=== PATIENT | male | born 1940 ===

== ENCOUNTER 2017-11-26 13:48 | Emergency (ER) | payer MEDICARE ==
[2017-11-26 13:48] VITALS: BMI 27.6
[2017-11-26 14:05] VITALS: BP 144/82; PULSE 98; RESP 16; TEMP 98; O2SAT 98
--- NOTE | 2017-11-26 14:31 | C.PDOC ---
- HPI Time Seen by Provider: 11/26/17 14:16 Chief Complaint (Nursing): Trauma Past Medical History Vital Signs: Last Vital Signs Temp 98 F 11/26/17 14:03 Pulse 98 H 11/26/17 14:03 Resp 16 11/26/17 14:03 BP 144/82 11/26/17 14:03 Pulse Ox 98 11/26/17 14:03 - Medical History PMH: Arthritis, Asthma, CAD, COPD, CVA, Diabetes, Gastritis, HTN, Hypercholesterolemia Denies: Chronic Kidney Disease Surgical History: Back Surgery (herniated disc), Cholecystectomy (2010) - [facility] Procedures DESTRUCTION OF ASCENDING COLON, ENDO (12/08/15) EXCISION OF STOMACH, ENDO, DIAGN (12/08/15) LAPAROSCOPIC CHOLECYSTECTOMY (07/26/14) Family History: States: Diabetes - Social History Hx Tobacco Use: Yes Hx Alcohol Use: No Hx Substance Use: No - Immunization History Hx Tetanus Toxoid Vaccination: Yes Hx Influenza Vaccination: No (2014) Hx Pneumococcal Vaccination: Yes ED Course And Treatment O2 Sat by Pulse Oximetry: 98 Disposition - Disposition
--- NOTE | 2017-11-26 14:34 | C.PDOC ---
History Of Present Illness 77 year old male with history of chronic "bad balance" presents to the ED c/o right sided chest wall and back pain for the past 5-6 days. Patient reports he accidentally fell 8 days ago sustaining an injury to his right side chest. Patient now noticed rash to the right side of his chest wall and back for the 5- 6 days as well. Patient is c/o burning, pain to the area that worsens with movement, pleutritic type pian. Patient is taken chronic pain medications. Patient denies fever, chills, cough, SOB, weakness, numbness. r chest wall/BACK PAIN X 5-6 DAYS. HO CHRONIC "BAD BALANCE", ACCID FALL 8 DAYS AGO ?INJURY TO R CHEST. NOTICED NEW ONSET RASH R CHEST WALL AND BACK X 5-6 DAYS. CO BURNING, PAIN TO AREA WORSE W MOVEMENT, PLEURITIC. NO FEVER, COUGH SOB. ON CHRONIC PAIN MEDS. EXAM NAD NONTOXIC HEENT ATRAUM SKIN +SHINGLES R CHEST WALL AND R MID BACK. NO CELLULITIS CHEST WALL NO CREPITUS, BRUISING, SWELL LUNGS CTA B/L NO W/R/R REMAINDER NEG Time Seen by Provider: 11/26/17 14:16 Chief Complaint (Nursing): Trauma History Per: Patient History/Exam Limitations: no limitations Onset/Duration Of Symptoms: Days Current Symptoms Are (Timing): Still Present Recent travel outside of the [place] States: No Additional History Per: Patient Past Medical History Reviewed: Historical Data, Nursing Documentation, Vital Signs Vital Signs: Last Vital Signs Temp 98 F 11/26/17 14:03 Pulse 98 H 11/26/17 14:03 Resp 16 11/26/17 14:03 BP 144/82 11/26/17 14:03 Pulse Ox 98 11/26/17 14:36 - Medical History PMH: Arthritis, Asthma, CAD, COPD, CVA, Diabetes, Gastritis, HTN, Hypercholesterolemia Denies: Chronic Kidney Disease Surgical History: Back Surgery (herniated disc), Cholecystectomy (2010) - [facility] Procedures DESTRUCTION OF ASCENDING COLON, ENDO (12/08/15) EXCISION OF STOMACH, ENDO, DIAGN (12/08/15) LAPAROSCOPIC CHOLECYSTECTOMY (07/26/14) Family History: States: Diabetes - Social History Hx Tobacco Use: Yes Hx Alcohol Use: No Hx Substance Use: No - Immunization History Hx Tetanus Toxoid Vaccination: Yes Hx Influenza Vaccination: No (2015) Hx Pneumococcal Vaccination: Yes Review Of Systems Constitutional: Negative for: Fever, Chills Cardiovascular: Positive for: Chest Pain Respiratory: Negative for: Shortness of Breath Gastrointestinal: Negative for: Nausea, Vomiting, Abdominal Pain Skin: Positive for: Rash Neurological: Negative for: Weakness, Numbness Physical Exam - Physical Exam Appears: Non-toxic, No Acute Distress Skin: Normal Color, Warm, Dry, Other (shingles right sided chest wall and right mid back. No cellulitis) Head: Atraumatic, Normacephalic Eye(s): bilateral: Normal Inspection Ear(s): Bilateral: Normal Nose: No Discharge Oral Mucosa: Moist Throat: Normal, No Erythema, No Exudate Neck: Normal ROM, Supple Chest: Symmetrical, No Other (crepitus, bruising, swelling) Cardiovascular: Rhythm Regular, No Murmur Respiratory: Normal Breath Sounds, No Rales, No Rhonchi, No Wheezing Gastrointestinal/Abdominal: Soft, No Tenderness, No Guarding, No Rebound Extremity: Normal ROM, No Tenderness, No Swelling Neurological/Psych: Oriented x3, Normal Motor, Normal Sensation Gait: Steady ED Course And Treatment O2 Sat by Pulse Oximetry: 98 (On RA) Pulse Ox Interpretation: Normal Medical Decision Making Medical Decision Making: Impression: rash, chest and back pain Plan: * Motrin 600 mg PO * Lidodern 1 ea TD * Prednisone 60 mg PO Disposition Counseled Patient/Family Regarding: Diagnosis, Need For Followup, Rx Given - Disposition Referrals: YOUR,PMD [Other] Disposition: HOME/ ROUTINE Disposition Time: 14:34 Condition: IMPROVED Prescriptions: Ibuprofen [Motrin] 600 mg PO Q6 #30 tab Lidocaine 5% [Lidoderm] 1 ea TD PRN PRN #10 patch PRN Reason: Pain, Moderate (4-7) predniSONE [Prednisone] 60 mg PO DAILY #12 tab Instructions: Shingles (DC) Forms: [facility] (Greenlandic) - Clinical Impression Clinical Impression: Shingles - Scribe Statement The provider has reviewed the documentation as recorded by the Scribe Gus Aponte All medical record entries made by the Scribe were at my direction and personally dictated by me. I have reviewed the chart and agree that the record accurately reflects my personal performance of the history, physical exam, medical decision making, and the department course for this patient. I have also personally directed, reviewed, and agree with the discharge instructions and disposition.
[2017-11-26] MEDS ORDERED: Lidocaine 5% Patch TD STA (14:35)
== END 2017-11-26 15:01 | disposition home or self-care (01) ==
LOC: C.ER 13:48
DX: B02.9 Zoster without complications (principal)

== ENCOUNTER 2018-01-26 19:53 | Emergency (ER) | payer MEDICARE ==
[2018-01-26 19:53] VITALS: BMI 27.6
[2018-01-26 20:05] VITALS: BP 113/70; RESP 20; O2SAT 98
--- NOTE | 2018-01-26 20:48 | C.PDOC ---
History Of Present Illness Patient presents to the ER after he tripped and fell a week ago and skinned his right anterior tibial lang. Denies fever, chills, nausea, or vomiting. Time Seen by Provider: 01/26/18 20:45 Chief Complaint (Nursing): Lower Extremity Problem/Injury History Per: Patient History/Exam Limitations: no limitations Onset/Duration Of Symptoms: Days Current Symptoms Are (Timing): Still Present Severity: Mild Pain Scale Rating Of: 2 Recent travel outside of the [place] States: No Past Medical History Reviewed: Historical Data, Nursing Documentation, Vital Signs Vital Signs: Last Vital Signs Temp 98 F 01/26/18 21:32 Pulse 82 01/26/18 21:32 Resp 20 01/26/18 21:32 BP 113/70 01/26/18 19:58 Pulse Ox 98 01/26/18 21:32 - Medical History PMH: Arthritis, Asthma, CAD, COPD, CVA, Diabetes, Gastritis, HTN, Hypercholesterolemia Surgical History: Back Surgery (herniated disc), Cholecystectomy (2010) - [facility] Procedures DESTRUCTION OF ASCENDING COLON, ENDO (12/08/15) EXCISION OF STOMACH, ENDO, DIAGN (12/08/15) LAPAROSCOPIC CHOLECYSTECTOMY (07/26/14) Family History: States: Diabetes - Social History Hx Tobacco Use: Yes Hx Alcohol Use: No Hx Substance Use: No - Immunization History Hx Tetanus Toxoid Vaccination: Yes Hx Influenza Vaccination: Yes (2014) Hx Pneumococcal Vaccination: Yes Review Of Systems Constitutional: Negative for: Fever, Chills Gastrointestinal: Negative for: Nausea, Vomiting Skin: Positive for: Other (Wound) Neurological: Negative for: Weakness, Numbness Physical Exam - Physical Exam Appears: Non-toxic Skin: Warm, Dry Head: Normacephalic Oral Mucosa: Moist Chest: Symmetrical, No Tenderness Cardiovascular: Rhythm Regular Respiratory: No Rales, No Rhonchi, No Wheezing Gastrointestinal/Abdominal: Soft, No Tenderness Extremity: Other (4x6cm area of erythema with two 1.5cm areas of open wounds with small amount of granulation tissue to right anterior tibial lang) Pulses: Left Dorsalis Pedis: Normal, Right Dorsalis Pedis: Normal Neurological/Psych: Oriented x3, Normal Speech, Normal Motor, Normal Sensation Gait: Other (Ambulating at baseline with cane) ED Course And Treatment O2 Sat by Pulse Oximetry: 98 (Room air) Pulse Ox Interpretation: Normal Disposition Counseled Patient/Family Regarding: Studies Performed, Diagnosis, Need For Followup, Rx Given - Disposition Referrals: Abundio Shelley MD [Staff Provider] - Disposition: HOME/ ROUTINE Disposition Time: 20:46 Condition: FAIR Additional Instructions: Please return if symptoms recur Instructions: Cellulitis (Skin Infection), Adult (DC) Forms: [facility] [facility] (Montenegrin) - Clinical Impression Clinical Impression: Cellulitis, Fall, Abrasion - Scribe Statement The provider has reviewed the documentation as recorded by the Scribshadi Velez All medical record entries made by the Sammyibshadi were at my direction and personally dictated by me. I have reviewed the chart and agree that the record accurately reflects my personal performance of the history, physical exam, medical decision making, and the department course for this patient. I have also personally directed, reviewed, and agree with the discharge instructions and disposition.
[2018-01-26 21:33] VITALS: PULSE 82; TEMP 98
== END 2018-01-26 21:31 | disposition home or self-care (01) ==
LOC: C.ER 19:53
DX: S80.811A Abrasion, right lower leg, initial encounter (principal); L03.115 Cellulitis of right lower limb; W01.0XXA Fall on same level from slipping, tripping and stumbling without subsequent striking against object, initial encounter

== ENCOUNTER 2018-03-16 15:21 | Inpatient (IN) | payer MEDICARE ==
--- NOTE | 2018-03-16 15:42 | C.PDOC ---
History Of Present Illness 78 year old male patient with hx of COPD and PSHx of back surgery presents to the ER with a referral from Dr. Shelley. Patient states he was doing a routine visit with Dr. Shelley to renew his prescription, but was waiting for a very long time. Patient states that when he stood up, he felt weak and fell. Afterwards he had SOB and his blood pressure escalated. Patient states he has chronic back pain due to back surgery and swollen legs despite being on diuretic. Other associated symptoms includes: frequent SOB on exertion, weak and fatigue. Patient denies chest pain and abdominal pain. Time Seen by Provider: 03/16/18 15:30 Chief Complaint (Nursing): Weakness/Neurological Deficit History Per: Patient History/Exam Limitations: no limitations Onset/Duration Of Symptoms: Hrs Current Symptoms Are (Timing): Still Present Past Medical History Reviewed: Historical Data, Nursing Documentation, Vital Signs Vital Signs: Last Vital Signs Temp 98.4 F 03/16/18 15:34 Pulse 80 03/16/18 15:34 Resp 20 03/16/18 16:00 BP 130/69 03/16/18 15:34 Pulse Ox 100 03/16/18 16:13 - Medical History PMH: Arthritis, Asthma, CAD, COPD, CVA, Diabetes, Gastritis, HTN, Hypercholesterolemia Surgical History: Back Surgery (herniated disc), Cholecystectomy (2010) - [facility] Procedures DESTRUCTION OF ASCENDING COLON, ENDO (12/08/15) EXCISION OF STOMACH, ENDO, DIAGN (12/08/15) LAPAROSCOPIC CHOLECYSTECTOMY (07/26/14) Family History: States: Diabetes - Social History Hx Tobacco Use: Yes Hx Alcohol Use: No Hx Substance Use: No - Immunization History Hx Tetanus Toxoid Vaccination: Yes Hx Influenza Vaccination: Yes (2014) Hx Pneumococcal Vaccination: Yes Review Of Systems Constitutional: Positive for: Weakness, Other (fatigue) Cardiovascular: Negative for: Chest Pain Respiratory: Positive for: SOB with Excertion Gastrointestinal: Negative for: Abdominal Pain Musculoskeletal: Positive for: Back Pain (chronic), Other (swollen legs) Physical Exam - Physical Exam Appears: Well, Non-toxic, No Acute Distress Skin: Normal Color, Warm, Dry Head: Atraumatic, Normacephalic Eye(s): bilateral: Normal Inspection Ear(s): Bilateral: Normal Nose: Normal Oral Mucosa: Moist Throat: Normal Neck: Normal ROM, Supple Chest: Symmetrical, No Deformity Cardiovascular: Rhythm Regular, Other (distant heart beat) Respiratory: Rales (B/L), No Rhonchi, No Wheezing Gastrointestinal/Abdominal: Soft, No Tenderness Back: No CVA Tenderness Extremity: Normal ROM (x4), Pedal Edema (2-3+), No Calf Tenderness, No Deformity Pulses: Left Dorsalis Pedis: Normal, Right Dorsalis Pedis: Normal Neurological/Psych: Oriented x3, Normal Speech, Normal Motor, Normal Sensation, Normal Reflexes Gait: Steady ED Course And Treatment - Laboratory Results Result Diagrams: 03/16/18 16:35 03/16/18 16:35 Lab Interpretation: Abnormal (BUN 22, glucose 70) ECG: Interpreted By Me ECG Rhythm: Sinus Rhythm (with left axis and LVH), Nonspecific Changes (T waves) ECG Interpretation: No Acute Changes O2 Sat by Pulse Oximetry: 100 (RA) Pulse Ox Interpretation: Normal - Radiology CXR: Viewed By Me, Read By Radiologist CXR Interpretation: Yes: No Acute Disease Reevaluation Time: 17:43 Reassessment Condition: Unchanged - Physician Consult Information Time Consulting Physician Contacted: 17:43 Physician Contacted: Abundio Shelley Outcome Of Conversation: Patient to be admitted for exacerbation of COPD, failure to thrive and frequent falls. Medical Decision Making Medical Decision Making: Impression:SOB on exertion, weak and fatigue, swollen legs and chronic back pain Reassess: On re-eval, pt is afebrile, hemodynamically stable. Non-toxic. PulseOx 100% on RA. ENT: no acute findings. Uvula midline. Neck: Supple, (-) JVD. Abd: Soft, non-tender. Neurologically intact. Patient is advised to f/u with PCP in 1-2 days and to come back if condition worsen. Disposition - Disposition Disposition: HOSPITALIZED Disposition Time: 17:40 Condition: STABLE - POA Present On Arrival: None - Clinical Impression Clinical Impression: COPD exacerbation, Failure to thrive in adult, Multiple falls - Scribe Statement The provider has reviewed the documentation as recorded by the Luis Alfredo Sutton Do Provider Attestation: All medical record entries made by the Scribe were at my direction and personally dictated by me. I have reviewed the chart and agree that the record accurately reflects my personal performance of the history, physical exam, medical decision making, and the department course for this patient. I have also personally directed, reviewed, and agree with the discharge instructions and disposition.
[2018-03-16 16:15] VITALS: BMI 23.6
--- NOTE | 2018-03-16 16:37 | RAD ---
Date of service: 03/16/2018 PROCEDURE: CHEST RADIOGRAPH, 1 VIEW HISTORY: SOB COMPARISON: 04/28/2016. FINDINGS: LUNGS: The lungs are well inflated and clear. PLEURA: No pneumothorax or pleural fluid seen. CARDIOVASCULAR: Normal. OSSEOUS STRUCTURES: No significant abnormalities. VISUALIZED UPPER ABDOMEN: Normal. OTHER FINDINGS: None. IMPRESSION: No active pulmonary disease.
[2018-03-16 16:43] LABS: BASO # 0.1 K/uL (0.0-0.2); EOS # 1.2 K/uL (0.0-0.7); EOS % 14.6 % (0.0-4.0); HEMOGLOBIN 12.2 g/dL (12.0-18.0); LYMPH # 1.1 K/uL (1.0-4.3); LYMPH % 12.6 % (20.0-40.0); MEAN CORPUSCULAR HEMOGLOBIN 30.5 pg (27.0-31.0); MEAN CORPUSCULAR HGB CONC 32.8 g/dL (33.0-37.0); MEAN PLATELET VOLUME 8.5 fL (7.2-11.7); MONO # 0.6 K/uL (0.0-0.8); MONO % 6.9 % (0.0-10.0); NEUT # 5.4 K/uL (1.8-7.0); NEUT % 64.9 % (50.0-75.0); NRBC % 0.1 % (0.0-2.0); RBC 4.01 Mil/uL (4.40-5.90); RED CELL DISTRIBUTION WIDTH 18.3 % (11.5-14.5); WHITE BLOOD COUNT 8.4 K/uL (4.8-10.8)
[2018-03-16 17:17] LABS: BLOOD UREA NITROGEN 22 mg/dL (9-20); GFR AFRICAN-AMERICAN > 60; GFR NON-AFRICAN AMERICAN > 60
[2018-03-16 17:18] LABS: ALB/GLOB RATIO 1.4 (1.0-2.1); ALBUMIN 3.8 g/dL (3.5-5.0); ALT/SGPT 67 U/L (21-72); AST/SGOT 30 U/L (17-59); B-TYPE NATRIURETIC PEPTIDE 343 pg/mL (0-900); CALCIUM 9.8 mg/dl (8.6-10.4)
[2018-03-16] MEDS ORDERED: (Novolog) Insulin Aspart, Recombinant 100 u/ml 10 ml vial SC SCH (21:45)
[2018-03-16] MEDS ORDERED: Oxycodone/Acetaminophen 5/325 mg Tab ONE (21:53)
[2018-03-16] MEDS: Oxycodone/Acetaminophen 5/325 mg Tab PO PRN (21:54)
[2018-03-16] MEDS: Albuterol-Ipratrop 3 mg / 0.5 (3 ml) UD INH SCH (23:40)
[2018-03-17] MEDS: Albuterol-Ipratrop 3 mg / 0.5 (3 ml) UD INH SCH ×5 (03:13→19:30)
--- NOTE | 2018-03-17 07:53 | CP.PCM.PN ---
Subjective - Date & Time of Evaluation Date of Evaluation: 03/17/18 Time of Evaluation: 07:53 - Subjective Subjective: PGY-[address] Shelley Service Patient seen and examined at bedside. Per nursing no acute events occurred overnight. Patient denies any chest pain, fevers, chills, nausea, vomiting, headache, dizziness, abdominal pain, changes in vision, or any other complaints. 78 year old female with a past medical history of hypertension, hyperlipdemia, bph, cholecystitiss(s/p cholecystectomy),COPD and PSHx of back surgery presents to the ER with a referral from Dr. Shelley. Patient states he was doing a routine visit with Dr. Shelley to renew his prescription, but was waiting for a very long time. Patient states that when he stood up, he felt weak and fell. Afterwards he had SOB and his blood pressure escalated. Patient states he has chronic back pain due to back surgery and swollen legs despite being on diuretic. Other associated symptoms includes: frequent SOB on exertion, weak and fatigue. Patient denies chest pain and abdominal pain. Medical history: htn, hld, bph, cholecystitis, copd, Surgical hx: cholecystectomy, back surgery Allergies: Denies PMD:Dr. Shelley Objective - Vital Signs/Intake and Output Vital Signs (last 24 hours): Temp Pulse Resp BP Pulse Ox 97.5 F L 65 20 151/85 H 100 03/17/18 07:39 03/17/18 07:39 03/17/18 07:39 03/17/18 07:39 03/17/18 07:39 - Medications Medications: Current Medications Albuterol/Ipratropium (Duoneb 3 Mg/0.5 Mg (3 Ml) Ud) 3 ml INH RQ4 [facility] Last Admin: 03/17/18 07:28 Dose: 3 ml Allopurinol (Zyloprim) 100 mg PO DAILY [facility] Colchicine (Colocrys) 0.6 mg PO DAILY [facility] Diclofenac Sodium (Voltaren) 50 mg PO BID [facility] Folic Acid (Folic Acid) 1 mg PO DAILY [facility] Furosemide (Lasix) 20 mg PO DAILY [facility] Gabapentin (Neurontin) 300 mg PO BID [facility] Glipizide (Glucotrol) 10 mg PO DAILY [facility] Home Med (Atorvastatin [Lipitor]) 10 mg PO DAILY [facility] Home Med (Cholecalciferol [Vitamin D 1000 Iu]) 1,000 unit PO DAILY [facility] Home Med (Dutasteride [Avodart]) 0.5 mg PO DAILY [facility] Home Med (Metformin [Glucophage]) 1,000 mg PO BID [facility] Home Med (Theophylline [Cb-Dur]) 200 mg PO BID [facility] Insulin Aspart (Novolog) 0 unit SC ONCE [facility] PRN Reason: Protocol Insulin Glargine (Lantus) 25 unit SC DAILY [facility] Methotrexate (Methotrexate) 3 mg PO QWK [facility] Oxycodone/Acetaminophen (Percocet 5/325 Mg Tab) 1 tab PO Q6 PRN PRN Reason: Pain, severe (8-10) Stop: 03/20/18 00:01 Last Admin: 03/16/18 21:54 Dose: 1 tab Tamsulosin HCl (Flomax) 0.4 mg PO DAILY [facility] Tramadol HCl (Ultram) 50 mg PO Q6 PRN PRN Reason: Pain, moderate (4-7) Last Admin: 03/17/18 05:10 Dose: 50 mg - Labs Labs: 03/16/18 16:35 03/16/18 16:35 Assessment and Plan - Assessment and Plan (Free Text) Plan: Near Syncope Last echo 12/2015 :EF 50-55% :Diastolic dysfunction :Trace tricuspid regurgitation :Mild pulmonic valve regurgitation -Orthostatics ordered .Will f/u with results. -Echo ordered. Will f/u with results. HTN -Lasix 20mg PO Daily DM2 -Glipizide 10mg PO Daily -ISS -Glargine 25 unit SC Daily -Metformin 1000mg PO BID Hypercholesterolemia -Rosuvastatin 5mg PO HS BPH -Flomax .4mg PO Daily -Finasteride 5mg PO Daily COPD -Theophylline 300 mg PO Daily -Duonebs 3ml INH RQ4 Gout -Allopurinol 100mg PO Daily -Colchicine .6mg PO Daily Vitamin D deficiency -Ergocalciferol 1 cap PO QWK PPX -Lovenox 40mg SC Daily -GI not indicated at this time. All management per Dr. Shelley
[2018-03-17] MEDS ORDERED: Home Med 1 UNIT (Metformin [Glucophage] 1,000 MG) PO SCH (10:00)
[2018-03-17] MEDS ORDERED: Home Med 1 UNIT (Atorvastatin [Lipitor] 10 MG) PO SCH (10:00)
[2018-03-17] MEDS ORDERED: Home Med 1 UNIT (Cholecalciferol [Vitamin D 1000 Iu] 1,000 UNIT) PO SCH (10:00)
[2018-03-17] MEDS ORDERED: DUTASTERIDE 0.5 MG PO SCH (10:00)
[2018-03-17] MEDS ORDERED: Ergocalciferol 50,000 Intl Units Cap PO SCH (10:00)
[2018-03-17] MEDS ORDERED: Theophylline 200mg ER 24 hrs Cap PO SCH (10:00)
[2018-03-17] MEDS ORDERED: THEOPHYLLINE 200 MG PO SCH (10:00)
[2018-03-17] MEDS: Diclofenac Sodium Delayed Release 50 mg EC Tab PO SCH ×2 (10:59→17:28)
[2018-03-17] MEDS: Enoxaparin 40 mg Syringe SC SCH (11:00)
[2018-03-17] MEDS: (Lantus) Insulin Glargine, Recombinant SC SCH (11:04)
[2018-03-17] MEDS ORDERED: Magnesium Sulfate 1 gm in D5W 1 GM/100 ML BAG IVPB ONE (12:00)
[2018-03-17] MEDS: Theophylline 300mg ER 24 hrs Cap PO SCH (12:20)
[2018-03-17] MEDS: (Novolog) Insulin Aspart, Recombinant 100 u/ml 10 ml vial SC SCH ×3 (12:35→22:00)
[2018-03-18] MEDS: Albuterol-Ipratrop 3 mg / 0.5 (3 ml) UD INH SCH ×6 (00:34→20:11)
[2018-03-18] MEDS ORDERED: guaiFENesin 100 mg/5 ml Syrup UD PO ONE (02:42)
[2018-03-18] MEDS: Oxycodone/Acetaminophen 5/325 mg Tab PO PRN (02:45)
[2018-03-18 06:41] LABS: BASO # 0.1 K/uL (0.0-0.2); BASO % 0.9 % (0.0-2.0); EOS # 1.5 K/uL (0.0-0.7); EOS % 20.3 % (0.0-4.0); HEMOGLOBIN 12.2 g/dL (12.0-18.0); LYMPH # 1.2 K/uL (1.0-4.3); LYMPH % 15.5 % (20.0-40.0); MEAN CELL VOLUME 93.1 fL (80.0-94.0); MEAN CORPUSCULAR HEMOGLOBIN 30.9 pg (27.0-31.0); MEAN CORPUSCULAR HGB CONC 33.2 g/dL (33.0-37.0); MEAN PLATELET VOLUME 8.7 fL (7.2-11.7); MONO # 0.6 K/uL (0.0-0.8); MONO % 8.4 % (0.0-10.0); NEUT # 4.1 K/uL (1.8-7.0); NEUT % 54.9 % (50.0-75.0); PLATELET COUNT 231 K/uL (130-400); RBC 3.96 Mil/uL (4.40-5.90); RED CELL DISTRIBUTION WIDTH 17.8 % (11.5-14.5); WHITE BLOOD COUNT 7.4 K/uL (4.8-10.8)
--- NOTE | 2018-03-18 06:59 | CP.PCM.PN ---
Subjective - Date & Time of Evaluation Date of Evaluation: 03/18/18 Time of Evaluation: 06:59 - Subjective Subjective: PGY-[address] Shelley Service Patient seen and examined at bedside. Per nursing no acute events occurred overnight. Patient denies any chest pain, fevers, chills, nausea, vomiting, headache, dizziness, abdominal pain, changes in vision, or any other complaints. Objective - Vital Signs/Intake and Output Vital Signs (last 24 hours): Temp Pulse Resp BP Pulse Ox 98.5 F 69 20 132/69 99 03/17/18 23:10 03/17/18 23:10 03/17/18 23:10 03/17/18 23:10 03/17/18 23:10 Intake and Output: 03/17/18 03/18/18 18:59 06:59 Intake Total 600 600 Balance 600 600 - Medications Medications: Current Medications Albuterol/Ipratropium (Duoneb 3 Mg/0.5 Mg (3 Ml) Ud) 3 ml INH RQ4 [facility] Last Admin: 03/18/18 04:47 Dose: Not Given Allopurinol (Zyloprim) 100 mg PO DAILY [facility] Last Admin: 03/17/18 11:02 Dose: 100 mg Colchicine (Colocrys) 0.6 mg PO DAILY [facility] Last Admin: 03/17/18 11:01 Dose: 0.6 mg Diclofenac Sodium (Voltaren) 50 mg PO BID [facility] Last Admin: 03/17/18 17:28 Dose: 50 mg Enoxaparin Sodium (Lovenox) 40 mg SC DAILY [facility] Last Admin: 03/17/18 11:00 Dose: 40 mg Ergocalciferol (Drisdol 50,000 Intl Units Cap) 1 cap PO QWK [facility] Last Admin: 03/17/18 11:02 Dose: 1 cap Finasteride (Proscar) 5 mg PO DAILY [facility] Last Admin: 03/17/18 11:00 Dose: 5 mg Folic Acid (Folic Acid) 1 mg PO DAILY [facility] Last Admin: 03/17/18 11:03 Dose: 1 mg Furosemide (Lasix) 20 mg PO DAILY [facility] Last Admin: 03/17/18 11:03 Dose: 20 mg Gabapentin (Neurontin) 300 mg PO BID [facility] Last Admin: 03/17/18 17:25 Dose: 300 mg Glipizide (Glucotrol) 10 mg PO DAILY [facility] Last Admin: 03/17/18 11:03 Dose: 10 mg Insulin Aspart (Novolog) 0 unit SC ACHS [facility] PRN Reason: Protocol Last Admin: 03/17/18 22:00 Dose: Not Given Insulin Glargine (Lantus) 25 unit SC DAILY [facility] Last Admin: 03/17/18 11:04 Dose: 25 units Metformin HCl (Glucophage) 1,000 mg PO BID [facility] Last Admin: 03/17/18 17:25 Dose: 1,000 mg Methotrexate (Methotrexate) 7.5 mg PO QWK [facility] Last Admin: 03/17/18 12:20 Dose: 7.5 mg Oxycodone/Acetaminophen (Percocet 5/325 Mg Tab) 1 tab PO Q6 PRN PRN Reason: Pain, severe (8-10) Stop: 03/20/18 00:01 Last Admin: 03/18/18 02:45 Dose: 1 tab Rosuvastatin Calcium (Crestor) 5 mg PO HS [facility] Last Admin: 03/17/18 21:36 Dose: 5 mg Tamsulosin HCl (Flomax) 0.4 mg PO DAILY [facility] Last Admin: 03/17/18 11:02 Dose: 0.4 mg Theophylline (Cb-24) 300 mg PO DAILY [facility] Last Admin: 03/17/18 12:20 Dose: 300 mg Tramadol HCl (Ultram) 50 mg PO Q6 PRN PRN Reason: Pain, moderate (4-7) Last Admin: 03/17/18 05:10 Dose: 50 mg - Labs Labs: 03/18/18 06:36 03/16/18 16:35 - Head Exam Head Exam: ATRAUMATIC, NORMAL INSPECTION - Eye Exam Eye Exam: EOMI, Normal appearance, PERRL Pupil Exam: NORMAL ACCOMODATION, PERRL - ENT Exam ENT Exam: Mucous Membranes Moist, Normal Oropharynx - Respiratory Exam Respiratory Exam: Clear to Ausculation Bilateral, NORMAL BREATHING PATTERN. absent: Prolonged Expiratory Phase, Respiratory Distress - Cardiovascular Exam Cardiovascular Exam: REGULAR RHYTHM, +S1, +S2 - GI/Abdominal Exam GI & Abdominal Exam: Soft, Normal Bowel Sounds. absent: Rigid, Hyperactive Bowel Sounds - Neurological Exam Neurological Exam: Alert, Awake, CN II-XII Intact, Oriented x3 - Psychiatric Exam Psychiatric exam: Normal Affect, Normal Mood Assessment and Plan - Assessment and Plan (Free Text) Plan: Near Syncope Last echo 12/2015 :EF 50-55% :Diastolic dysfunction :Trace tricuspid regurgitation :Mild pulmonic valve regurgitation -Orthostatics ordered .Will f/u with results. -Echo ordered. Will f/u with results. Lower extremity leg pain - lower extremity duplex ordered. Negative for DVT HTN -Lasix 20mg PO Daily DM2 -Glipizide 10mg PO Daily -ISS -Glargine 25 unit SC Daily -Metformin 1000mg PO BID Hypercholesterolemia -Rosuvastatin 5mg PO HS BPH -Flomax .4mg PO Daily -Finasteride 5mg PO Daily COPD -Theophylline 300 mg PO Daily -Duonebs 3ml INH RQ4 Gout -Allopurinol 100mg PO Daily -Colchicine .6mg PO Daily Vitamin D deficiency -Ergocalciferol 1 cap PO QWK PPX -Lovenox 40mg SC Daily -GI not indicated at this time. Dispo: Patient expected to be discharged to [facility] tomorrow . All management per Dr. Shelley
[2018-03-18 07:03] LABS: ALB/GLOB RATIO 1.3 (1.0-2.1); ALBUMIN 3.5 g/dL (3.5-5.0); ALT/SGPT 55 U/L (21-72); AST/SGOT 33 U/L (17-59); BLOOD UREA NITROGEN 17 mg/dL (9-20); CALCIUM 9.4 mg/dl (8.6-10.4); GFR AFRICAN-AMERICAN > 60; GFR NON-AFRICAN AMERICAN > 60
[2018-03-18] MEDS: (Novolog) Insulin Aspart, Recombinant 100 u/ml 10 ml vial SC SCH ×4 (08:02→22:04)
--- NOTE | 2018-03-18 08:21 | HP ---
Copied To: Abundio Shelley MD Attending MD: Abundio Shelley MD HISTORY OF PRESENT ILLNESS: An 78-year-old male with history of severe COPD, arthritis, diabetes. He comes to the hospital with a chief complaint of severe abdominal pain, chest pain, shortness of breath, frequent falls, failure to thrive. The patient came to the ER, advised admission. The patient uses insulin, oxycodone, tramadol, ipratropium. PHYSICAL EXAMINATION: GENERAL: The patient is awake, alert, oriented. VITAL SIGNS: Temperature 98, pulse is 90, blood pressure 130/70. HEENT: Within normal limits. NECK: Supple. CHEST: Symmetrical. HEART: Regular. ABDOMEN: Soft. EXTREMITIES: No edema. ASSESSMENT AND PLAN: The patient is status post severe chronic obstructive pulmonary disease, frequent falls, myelopathy, arthritis. The patient to get bed rest, bronchodilators, supportive care. Abundio Shelley MD
[2018-03-18 08:37] LABS: ANISOCYTOSIS SLIGHT; BASOPHIL 1 % (0-2); EOSINOPHIL 19 % (0-4); LYMPHOCYTE 11 % (20-40); MONOCYTE 9 % (0-10); NEUTROPHIL 60 % (50-75); OVALOCYTES SLIGHT; PLATELET ESTIMATE NORMAL (NORMAL); TOTAL CELLS COUNTED 100
[2018-03-18] MEDS ORDERED: Pneumococcal 23-Valent Vaccine IM ONE (10:00)
[2018-03-18] MEDS: Enoxaparin 40 mg Syringe SC SCH (10:19)
[2018-03-18] MEDS: Diclofenac Sodium Delayed Release 50 mg EC Tab PO SCH ×2 (10:19→18:06)
[2018-03-18] MEDS: (Lantus) Insulin Glargine, Recombinant SC SCH (10:20)
[2018-03-18] MEDS: Theophylline 300mg ER 24 hrs Cap PO SCH (10:20)
--- NOTE | 2018-03-18 10:37 | VASCLAB ---
Date of service: 03/17/2018 PROCEDURE: Lower Extremity Venous Duplex Exam. HISTORY: Pain in limb PRIORS: None. TECHNIQUE: Bilateral common femoral, femoral, popliteal and posterior tibial, peroneal and great saphenous veins were evaluated. Flow was assessed with color Doppler, compressibility, assessment of phasic flow and augmentation response. Report prepared by ERIN Ash FINDINGS: RIGHT: 1. Common Femoral Vein: 1.1. Compressibility - Fully compressible: Thrombus - None : Flow - Phasic: Augmentation -Normal: Reflux - None. 2. Femoral Vein: 2.1. Compressibility - Fully compressible: Thrombus - None : Flow - Phasic: Augmentation -Normal: Reflux - None. 3. Popliteal Vein: 3.1. Compressibility - Fully compressible: Thrombus - None : Flow - Phasic: Augmentation -Normal: Reflux - None. 4. Posterior Tibial Vein: 4.1. Compressibility - Fully compressible: Thrombus - None: Flow - Phasic: Augmentation -Normal: Reflux - None. 5. Peroneal Vein: 5.1. Compressibility - Fully compressible: Thrombus - None: Flow - Phasic: Augmentation -Normal: Reflux - None. 6. Great Saphenous Vein: 6.1. Compressibility - Fully compressible: Thrombus - None: Flow - Phasic: Augmentation - Normal: Reflux - None. LEFT: 1. Common Femoral Vein: 1.1. Compressibility - Fully compressible: Thrombus - None: Flow - Phasic: Augmentation -Normal: Reflux - None. 2. Femoral Vein: 2.1. Compressibility - Fully compressible: Thrombus - None: Flow - Phasic: Augmentation -Normal: Reflux - None. 3. Popliteal Vein: 3.1. Compressibility - Fully compressible: Thrombus - None : Flow - Phasic: Augmentation -Normal: Reflux - None. 4. Posterior Tibial Vein: 4.1. Compressibility - Fully compressible: Thrombus - None: Flow - Phasic: Augmentation -Normal: Reflux - None. 5. Peroneal Vein: 5.1. Compressibility - Fully compressible: Thrombus - None: Flow - Phasic: Augmentation -Normal: Reflux - None. 6. Great Saphenous Vein: 6.1. Compressibility - Fully compressible: Thrombus - None: Flow - Phasic: Augmentation - Normal: Reflux - None. OTHER FINDINGS: Right: None significant. Left: None significant. IMPRESSION: Right: No evidence of deep or superficial vein thrombosis of the right lower extremity. Normal valve function noted of the right side. Left: No evidence of deep or superficial vein thrombosis of the left lower extremity. Normal valve function noted of the left side.
--- NOTE | 2018-03-18 17:29 | CARD ---
APPROVED REPORT Date of service: 03/18/2018 EXAM: Two-dimensional and M-mode echocardiogram with Doppler and color Doppler. INDICATION Syncope COPD RISK FACTORS Hypertension Hyperlipidemia Diabetes 2D DIMENSIONS IVSd1.2 (0.7-1.1cm)Aortic Root (2D)3.2 (2.0-3.7cm) LVDd5.2 (3.9-5.9cm)PWd0.9 (0.7-1.1cm) LVDs3.4 (2.5-4.0cm)FS (%) 34.9 % LVEF (%)63.8 (>50%) M-Mode DIMENSIONS Left Atrium (MM)3.48 (2.5-4.0cm)IVSd0.83 (0.7-1.1cm) Aortic Root2.38 (2.2-3.7cm)LVDd4.41 (4.0-5.6cm) Aortic Cusp Exc.1.52 (1.5-2.0cm)PWd1.05 (0.7-1.1cm) FS (%) 36 %LVDs2.82 (2.0-3.8cm) TAPSE17.96 cmLVEF (%)66 (>50%) Mitral Valve MV E Bivpdzbq89.3cm/sMV A Vrcesyst09.4cm/sE/A ratio0.7 TDI E/Lateral E'0.0E/Medial E'0.0 Tricuspid Valve TR Peak [id number]/sTR Peak [id number] LEFT VENTRICLE The left ventricle is normal size. There is normal left ventricular wall thickness. The left ventricular systolic function is normal. The left ventricular ejection fraction is within the normal range. There is normal LV segmental wall motion. Transmitral Doppler flow pattern is Grade I-abnormal relaxation pattern. Normal left atrial pressure. RIGHT VENTRICLE The right ventricle is normal size. The right ventricular systolic function is normal. ATRIA The left atrium size is normal. The right atrium size is normal. AORTIC VALVE The aortic valve is slightly calcified but opens well. No aortic regurgitation is present. MITRAL VALVE The mitral valve is normal in structure. There is no mitral valve regurgitation noted. TRICUSPID VALVE The tricuspid valve is normal in structure. There is trace to mild tricuspid regurgitation. GREAT VESSELS The aortic root displays mild sclerocalcific changes. The IVC is normal in size and collapses >50% with inspiration. PERICARDIAL EFFUSION There is no pericardial effusion. <Conclusion> The left ventricular systolic function is normal. There is normal LV segmental wall motion. Transmitral Doppler flow pattern is Grade I-abnormal relaxation pattern. Normal left atrial pressure. The right ventricular systolic function is normal. No significant valvular abnormality.. The aortic root displays mild sclerocalcific changes. There is no pericardial effusion.
[2018-03-19] MEDS: Albuterol-Ipratrop 3 mg / 0.5 (3 ml) UD INH SCH ×4 (00:35→13:00)
[2018-03-19] MEDS: (Novolog) Insulin Aspart, Recombinant 100 u/ml 10 ml vial SC SCH ×2 (08:38→12:56)
[2018-03-19] MEDS: Theophylline 300mg ER 24 hrs Cap PO SCH (10:01)
[2018-03-19] MEDS: Enoxaparin 40 mg Syringe SC SCH (10:01)
[2018-03-19] MEDS: Diclofenac Sodium Delayed Release 50 mg EC Tab PO SCH (10:01)
[2018-03-19] MEDS: (Lantus) Insulin Glargine, Recombinant SC SCH (10:01)
--- NOTE | 2018-03-19 11:49 | CP.PCM.PN ---
Subjective - Date & Time of Evaluation Date of Evaluation: 03/19/18 Time of Evaluation: 11:30 - Subjective Subjective: MASTER WELDER NOTES Patient seen today, denies any chest pain, sob, dizziness, palpitations, headache, N/V No overnight events reported by RN Objective - Vital Signs/Intake and Output Vital Signs (last 24 hours): Temp Pulse Resp BP Pulse Ox 98.4 F 84 18 153/68 H 98 03/19/18 08:38 03/19/18 08:38 03/19/18 08:38 03/19/18 10:02 03/19/18 08:38 - Medications Medications: Current Medications Albuterol/Ipratropium (Duoneb 3 Mg/0.5 Mg (3 Ml) Ud) 3 ml INH RQ4 [facility] Last Admin: 03/19/18 07:20 Dose: 3 ml Allopurinol (Zyloprim) 100 mg PO DAILY [facility] Last Admin: 03/19/18 10:01 Dose: 100 mg Colchicine (Colocrys) 0.6 mg PO DAILY [facility] Last Admin: 03/19/18 10:00 Dose: 0.6 mg Diclofenac Sodium (Voltaren) 50 mg PO BID [facility] Last Admin: 03/19/18 10:01 Dose: 50 mg Enoxaparin Sodium (Lovenox) 40 mg SC DAILY [facility] Last Admin: 03/19/18 10:01 Dose: 40 mg Ergocalciferol (Drisdol 50,000 Intl Units Cap) 1 cap PO QWK [facility] Last Admin: 03/17/18 11:02 Dose: 1 cap Finasteride (Proscar) 5 mg PO DAILY [facility] Last Admin: 03/19/18 10:01 Dose: 5 mg Folic Acid (Folic Acid) 1 mg PO DAILY [facility] Last Admin: 03/19/18 10:00 Dose: 1 mg Furosemide (Lasix) 20 mg PO DAILY [facility] Last Admin: 03/19/18 10:02 Dose: 20 mg Gabapentin (Neurontin) 300 mg PO BID [facility] Last Admin: 03/19/18 10:01 Dose: 300 mg Glipizide (Glucotrol) 10 mg PO DAILY [facility] Last Admin: 03/19/18 10:01 Dose: 10 mg Insulin Aspart (Novolog) 0 unit SC [facility] PRN Reason: Protocol Last Admin: 03/19/18 08:38 Dose: 1 unit Insulin Glargine (Lantus) 25 unit SC DAILY [facility] Last Admin: 03/19/18 10:01 Dose: 25 units Metformin HCl (Glucophage) 1,000 mg PO BID [facility] Last Admin: 03/19/18 10:01 Dose: 1,000 mg Methotrexate (Methotrexate) 7.5 mg PO QWK [facility] Last Admin: 03/17/18 12:20 Dose: 7.5 mg Oxycodone/Acetaminophen (Percocet 5/325 Mg Tab) 1 tab PO Q6 PRN PRN Reason: Pain, severe (8-10) Stop: 03/20/18 00:01 Last Admin: 03/18/18 02:45 Dose: 1 tab Rosuvastatin Calcium (Crestor) 5 mg PO HS [facility] Last Admin: 03/18/18 22:04 Dose: 5 mg Tamsulosin HCl (Flomax) 0.4 mg PO DAILY [facility] Last Admin: 03/19/18 10:00 Dose: 0.4 mg Theophylline (Cb-24) 300 mg PO DAILY [facility] Last Admin: 03/19/18 10:01 Dose: 300 mg Tramadol HCl (Ultram) 50 mg PO Q6 PRN PRN Reason: Pain, moderate (4-7) Last Admin: 03/17/18 05:10 Dose: 50 mg - Labs Labs: 03/18/18 06:36 03/18/18 06:36 Assessment and Plan - Assessment and Plan (Free Text) Assessment: A/P 78 yr old male with pmhx of CAD, COPD, CVA, Diabetes, Gastritis, HTN, Hypercholesterolemia admitted with near syncope labs reviewed - unremarkable Patient accepted at [facility] for [facility] and pt and family in agreement seen by Dr. Marshal philip today, stable for discharge patient to [facility] today and Dr. Marshal philip will follow the patient at [facility] discharge plan discussed with patient who understands and agrees with plan
[2018-03-19 14:55] VITALS: BP 147/68; PULSE 72; RESP 20; TEMP 98; O2SAT 99
--- NOTE | 2018-03-20 23:55 | CARD ---
APPROVED REPORT Date of service: 03/16/2018 EKG Measurement Heart [id number] <Conclusion> Normal sinus rhythm Left axis deviation Minimal voltage criteria for LVH, may be normal variant Nonspecific T wave abnormality Abnormal ECG
--- NOTE | 2018-03-24 13:19 | DS ---
Copied To: Abundio Shelley MD Attending MD: Abundio Shelley MD The patient came to the hospital with a chief complaint of generalized weakness, fatigue, tiredness. The patient was placed on bedrest, supportive care, bronchodilators, pain management. The patient transferred to rehab. DIAGNOSIS: Chronic obstructive pulmonary disease, failure to thrive, gout, arthritis. Abundio Shelley MD
== END 2018-03-19 16:45 | DRG 191 ==
LOC: C.ER 15:21 → C.9E 17:44 → C.3T 20:46 → C.9E 20:48 → C.3T 21:48
PROVIDERS: ADMIT Internal Medicine Pulmonary Disease; ATTEND Internal Medicine Pulmonary Disease
DX: J44.1 Chronic obstructive pulmonary disease with (acute) exacerbation (principal); G95.9 Disease of spinal cord, unspecified; E78.00 Pure hypercholesterolemia, unspecified; E11.9 Type 2 diabetes mellitus without complications; I10 Essential (primary) hypertension; I25.10 Atherosclerotic heart disease of native coronary artery without angina pectoris; R29.6 Repeated falls; N40.0 Benign prostatic hyperplasia without lower urinary tract symptoms; R62.7 Adult failure to thrive; Z86.73 Personal history of transient ischemic attack (TIA), and cerebral infarction without residual deficits; Z87.891 Personal history of nicotine dependence; Z90.49 Acquired absence of other specified parts of digestive tract; R55 Syncope and collapse; M10.9 Gout, unspecified; E55.9 Vitamin D deficiency, unspecified

== ENCOUNTER 2018-04-19 08:41 | Inpatient (IN) | payer MEDICARE ==
[2018-04-19 08:41] VITALS: BMI 23.6
[2018-04-19] MEDS ORDERED: Albuterol-Ipratrop 3 mg / 0.5 (3 ml) UD ONE (09:06)
[2018-04-19] MEDS ORDERED: Sodium Chloride 0.9% 1,000 ML IV ONE (09:07)
--- NOTE | 2018-04-19 09:07 | C.PDOC ---
History Of Present Illness 78 yo male w/PMHx of COPD, PVD, hx of DVT, BIBA for evaluation of SOB gradually developed for past 3-4 days. As per family, "noted breathing gradually became heavy and were checking FS at home and it keep reading high". AT present time, pt appears in mild resp. distress. Otherwise, family denies high fever, chills, recent illness, CP, wheezing, abd. pain, V/D, UTI sx. Time Seen by Provider: 04/19/18 08:56 Chief Complaint (Nursing): Shortness Of Breath History Per: Patient, Family Past Medical History Reviewed: Historical Data, Nursing Documentation, Vital Signs Vital Signs: Last Vital Signs Temp 97.7 F 04/19/18 08:54 Pulse 79 04/19/18 11:26 Resp 20 04/19/18 11:26 BP 135/82 04/19/18 11:26 Pulse Ox 98 04/19/18 11:26 - Medical History PMH: Arthritis, Asthma, CAD, CHF, COPD, CVA, Diabetes, Gastritis, HTN, Hypercholesterolemia, Rheumatoid Arthritis Denies: Chronic Kidney Disease Surgical History: Back Surgery (herniated disk x3, neck), Cholecystectomy (2010) - [facility] Procedures DESTRUCTION OF ASCENDING COLON, ENDO (12/08/15) EXCISION OF STOMACH, ENDO, DIAGN (12/08/15) LAPAROSCOPIC CHOLECYSTECTOMY (07/26/14) Family History: States: Diabetes - Social History Hx Tobacco Use: Yes Hx Alcohol Use: No Hx Substance Use: No - Immunization History Hx Tetanus Toxoid Vaccination: (unk) Hx Influenza Vaccination: Yes Hx Pneumococcal Vaccination: Yes Review Of Systems Constitutional: Negative for: Fever, Chills ENT: Negative for: Throat Pain Cardiovascular: Negative for: Chest Pain, Palpitations, Light Headedness Respiratory: Positive for: Cough, Shortness of Breath. Negative for: Sputum Gastrointestinal: Negative for: Nausea, Vomiting, Abdominal Pain, Diarrhea Genitourinary: Negative for: Dysuria Skin: Negative for: Bruising Neurological: Negative for: Altered Mental Status Physical Exam - Physical Exam Appears: Well, Non-toxic, Other (mild resp.) Skin: Normal Color, Warm, Dry, No Rash Head: Normacephalic Eye(s): bilateral: PERRL Nose: No Flaring, No Discharge Oral Mucosa: Moist, No Drooling Tongue: Normal Appearing Lips: Normal Appearing Throat: No Drooling Neck: Trachea Midline, Supple Cardiovascular: Rhythm Regular Respiratory: Accessory Muscle Use (abd), No Rales, No Rhonchi, No Stridor, Wheezing (diffuse exp wheezing B/L, BS equal B/L) Gastrointestinal/Abdominal: Soft, No Tenderness, No Distention, No Guarding Extremity: Normal ROM, No Pedal Edema Neurological/Psych: Oriented x3, Normal Speech ED Course And Treatment - Laboratory Results Result Diagrams: 04/19/18 09:40 04/19/18 09:40 Lab Interpretation: No Changes Compared To Prior Results ECG: Interpreted By Me, Viewed By Me ECG Interpretation: No Changes From Prior Interpretation Of ECG: SR@90/min,LAD, LAFB, no acute ST-T changes O2 Sat by Pulse Oximetry: 98 Pulse Ox Interpretation: Normal - Radiology CXR: Interpreted by Me, Viewed By Me, Read By Radiologist CXR Interpretation: Yes: COPD, Cardiomegaly Progress Note: Pt present with sx of dyspnea, PMHx of COPD, (+) diffuse exp wheezing B/L on exam. After ED tx, pt reports mild improvement in sx. Appears comforatble now, not in resp. distress. previous admisison to [facility] on 03/17/18 due to syncope, card work, ECHO with EF >50 %. Today's blood owrk review and appears at baseline, no acute leukocytosis. chemsitry, troponin I, EKG, CXR- no acute changes from baseline. Case discussed with PMD and admission recommend for OBS with Dx: acute COPD exacerbation. I think, given extensive PMHx, age, pt will benefits from 24 hrs admission , Blood/Ucx cx pending. Critical Care Time - Critical Care Note Total Time (in mins): 40 Documented critical care: time excludes all time spent performing seperately billable procedures. Disposition - Disposition Disposition: HOSPITALIZED Disposition Time: 10:29 Condition: STABLE Forms: [facility] (Ecuadorean) - Clinical Impression Clinical Impression: Chr obstructive pulmonary disease w/ acute lower respiratory infxn
[2018-04-19] MEDS ORDERED: Albuterol-Ipratrop 3 mg / 0.5 (3 ml) UD IH STA (09:09)
[2018-04-19 09:38] LABS: VENOUS BLOOD GAS BASE EXCESS 0.8 mmol/L (0.0-2.0); VENOUS BLOOD GAS PCO2 49 mmHg (40-60); VENOUS BLOOD GAS PO2 17 mm/Hg (30-55); VENOUS BLOOD PH 7.35 (7.32-7.43)
[2018-04-19] MEDS ORDERED: Sodium Chloride 0.9% 1,000 ML ONE (09:44)
[2018-04-19 09:45] LABS: BASO # 0.1 K/uL (0.0-0.2); BASO % 1.1 % (0.0-2.0); EOS # 2.2 K/uL (0.0-0.7); EOS % 22.5 % (0.0-4.0); HEMOGLOBIN 12.3 g/dL (12.0-18.0); LYMPH # 1.9 K/uL (1.0-4.3); LYMPH % 19.1 % (20.0-40.0); MEAN CELL VOLUME 94.8 fL (80.0-94.0); MEAN CORPUSCULAR HEMOGLOBIN 31.6 pg (27.0-31.0); MEAN CORPUSCULAR HGB CONC 33.4 g/dL (33.0-37.0); MEAN PLATELET VOLUME 8.1 fL (7.2-11.7); MONO % 10.4 % (0.0-10.0); NEUT # 4.7 K/uL (1.8-7.0); NEUT % 46.9 % (50.0-75.0); NRBC % 0.1 % (0.0-2.0); PLATELET COUNT 263 K/uL (130-400); RED CELL DISTRIBUTION WIDTH 17.2 % (11.5-14.5); WHITE BLOOD COUNT 9.9 K/uL (4.8-10.8)
[2018-04-19 09:57] LABS: PROTHROMBIN TIME 10.9 SECONDS (9.7-12.2)
[2018-04-19 10:14] LABS: B-TYPE NATRIURETIC PEPTIDE 139 pg/mL (0-900)
[2018-04-19 10:15] LABS: EOSINOPHIL 18 % (0-4); LYMPHOCYTE 20 % (20-40); MONOCYTE 6 % (0-10); NEUTROPHIL 56 % (50-75); PLATELET ESTIMATE NORMAL (NORMAL); TOTAL CELLS COUNTED 100
[2018-04-19 10:16] LABS: ANISOCYTOSIS SLIGHT; OVALOCYTES SLIGHT
[2018-04-19] MEDS ORDERED: Piperacillin/Tazobact 3.375 gm 100 ML IV STA (10:20)
[2018-04-19 10:23] LABS: ALB/GLOB RATIO 1.4 (1.0-2.1); ALT/SGPT 45 U/L (21-72); AST/SGOT 24 U/L (17-59); BLOOD UREA NITROGEN 16 mg/dL (9-20); CALCIUM 9.6 mg/dl (8.6-10.4); GFR NON-AFRICAN AMERICAN > 60
[2018-04-19 10:25] LABS: URINE BILIRUBIN NEGATIVE (NEGATIVE); URINE BLOOD NEGATIVE (NEGATIVE); URINE CLARITY Clear (Clear); URINE COLOR Yellow (YELLOW); URINE GLUCOSE (UA) NORMAL (Normal); URINE LEUKOCYTE ESTERASE NEG Leu/uL (Negative); URINE PROTEIN 1+ mg/dL (NEGATIVE); URINE UROBILINOGEN NORMAL mg/dL (0.2-1.0)
--- NOTE | 2018-04-19 11:19 | RAD ---
Date of service: 04/19/2018 PROCEDURE: CHEST RADIOGRAPH, 1 VIEW HISTORY: SOB COMPARISON: Comparison chest 03/16/2018 FINDINGS: LUNGS: Mild left basilar atelectasis and or scarring PLEURA: No pneumothorax or pleural fluid seen. CARDIOVASCULAR: Normal. OSSEOUS STRUCTURES: No significant abnormalities. VISUALIZED UPPER ABDOMEN: Normal. OTHER FINDINGS: None. IMPRESSION: Mild left basilar atelectasis and/or scarring
[2018-04-19] MEDS ORDERED: Piperacillin/Tazobact 3.375 gm 100 ML IVPB ONE (11:32)
[2018-04-19 15:03] VITALS: RESP 20
--- NOTE | 2018-04-19 15:13 | CP.PCM.PN ---
Subjective - Date & Time of Evaluation Date of Evaluation: 04/19/18 Time of Evaluation: 15:30 - Subjective Subjective: Progress Note for Dr. Shelley's Service Patient seen and examined at bedside. Patient reports he feels better now after receiving breathing treatments in the ED. Denied fever, chills, headache, chest pain, abdominal pain, n/v/d/c, or urinary symptoms. This is an 78 year old male with PMHx of HTN, Hypercholesterimia, T2DM, COPD, Gout, and BPH who presented to the ED with shortness of breath and chest tightness x 1 day. Patient reports he uses a nebulizer every 4 hours and is compliant with his medications. However the past night he felt very short of breath ambulating. Patient ambulates with a walker with assistance. Denied fever , chills, headache, abdominal pain, n/v/d/c, or urinary symptoms. PMHx: HTN, Hypercholesterimia, T2DM, COPD, Gout, and BPH PSHx: cholecystectomy, back surgery Meds: As per OCT, reviewed and confirmed Allergies: Denies PMD:Dr. Shelley Objective - Vital Signs/Intake and Output Vital Signs (last 24 hours): Temp Pulse Resp BP Pulse Ox 97.8 F 95 H 20 154/89 H 97 04/19/18 14:45 04/19/18 14:45 04/19/18 14:45 04/19/18 14:45 04/19/18 14:45 - Labs Labs: 04/19/18 09:40 04/19/18 09:40 PT 10.9 SECONDS (9.7-12.2) 04/19/18 09:40 INR 1.0 04/19/18 09:40 APTT 31 SECONDS (21-34) 04/19/18 09:40 Assessment and Plan - Assessment and Plan (Free Text) Plan: COPD Exacerbation - CXR: no acute disease - Patient has home O2 @ 2L [place], ambulates with walker with assistance, has nebulizer at home uses it every 4 hours Medications: - Theophylline 300 mg PO Daily - Albuterol INH RQ4, added Spiriva Qdaily, added Advair - Solumedrol 40mg IVP Q8H - Added Zosyn due to recent hospital admission (<30 days) and recently discharged from [facility] (<4 days) Hypertension - Lasix increased from 20 to 40mg PO Daily - ECHO: 65% LVEF Hypercholesterimia - Rosuvastatin 5mg PO HS T2DM - Accuchecks - ISS - high (due to steroids), Glipizide 10mg PO Daily, Glargine 25 unit SC Daily, Metformin 1000mg PO BID - F/U Lipid and HA1C Gout - Allopurinol 100mg PO Daily, Colchicine 0.6mg PO Daily BPH - Resumed Flomax .4mg PO Daily, Finasteride 5mg PO Daily Prophylactic Measures - GI PPX: Protonix (due to steroids) - DVT PPX: SCDs c/i due to lower extremity swelling, Lovenox daily - PT Eval - FALL RISK All medical management as per Dr. Shelley -- Xiomy Kumar DO PGY2
[2018-04-19] MEDS ORDERED: Glucagon Recombinant 1 mg Inj IM PRN (15:34)
[2018-04-19] MEDS ORDERED: Dextrose 50% SYRINGE Inj (50 ml) IV PRN (15:34)
[2018-04-19] MEDS ORDERED: Albuterol-Ipratrop 3 mg / 0.5 (3 ml) UD INH SCH (16:00)
[2018-04-19] MEDS ORDERED: (Novolog) Insulin Aspart, Recombinant 100 u/ml 10 ml vial SC SCH (16:30)
[2018-04-19] MEDS: Oxycodone/Acetaminophen 5/325 mg Tab PO PRN (16:41)
[2018-04-19] MEDS: (Novolog) Insulin Aspart, Recombinant 100 u/ml 10 ml vial SC SCH ×2 (17:44→21:26)
[2018-04-19] MEDS: MethylPREDNISolone 40 mg Vial IVP SCH (17:45)
[2018-04-19] MEDS: Diclofenac Sodium Delayed Release 50 mg EC Tab PO SCH ×2 (17:46→21:47)
[2018-04-19] MEDS: Piperacill/Tazo 3.375gm in Dex 3.375 GM/50 ML BAG IVPB SCH ×2 (18:00→23:10)
[2018-04-19] MEDS: Fluticasone-Salmeterol 250-50mcg Diskus INH SCH (19:36)
[2018-04-19] MEDS: Albuterol 0.083% Inhal Sol (2.5 mg/3 mL) UD INH SCH (19:39)
[2018-04-19] MEDS: Saccharomyces Boulardi 250 mg Cap PO SCH (23:09)
[2018-04-20] MEDS: Albuterol 0.083% Inhal Sol (2.5 mg/3 mL) UD INH SCH ×7 (00:35→23:41)
[2018-04-20] MEDS ORDERED: guaiFENesin DM 100 mg-10 mg/5 ml UD PO ONE (01:35)
[2018-04-20] MEDS: MethylPREDNISolone 40 mg Vial IVP SCH ×3 (02:36→17:55)
[2018-04-20] MEDS: Piperacill/Tazo 3.375gm in Dex 3.375 GM/50 ML BAG IVPB SCH ×4 (06:12→23:46)
--- NOTE | 2018-04-20 07:24 | CP.PCM.PN ---
Subjective - Date & Time of Evaluation Date of Evaluation: 04/20/18 Time of Evaluation: 08:00 - Subjective Subjective: PGY3 medicine progress note for Dr. Shelley: Patient was seen and examined at bedside this morning. He reports minor SOB but states that with the breathing treatments he feels as his breathing has improved since yesterday. He reports having a cough with clear sputum production. He denies fever/chills. Patient states he is tolerating his diet, had a BM yesterday and has no difficulty urinating. He is able to walk with PT but still feels unstable. Objective - Vital Signs/Intake and Output Vital Signs (last 24 hours): Temp Pulse Resp BP Pulse Ox 98.1 F 68 20 150/86 97 04/19/18 23:25 04/19/18 23:30 04/19/18 23:25 04/19/18 23:25 04/19/18 23:30 Intake and Output: 04/20/18 04/20/18 06:59 18:59 Output Total 1450 Balance -1450 - Medications Medications: Current Medications Albuterol Sulfate (Albuterol 0.083% Inhal Vibha (2.5 Mg/3 Ml) Ud) 2.5 mg INH RQ4 [facility] Last Admin: 04/20/18 07:20 Dose: 2.5 mg Allopurinol (Zyloprim) 100 mg PO DAILY [facility] Colchicine (Colocrys) 0.6 mg PO DAILY [facility] Dextrose (Dextrose 50% Inj) 0 ml IV STAT PRN; Protocol PRN Reason: Hypoglycemia Protocol Dextrose (Glutose 15) 0 gm PO ONCE PRN; Protocol PRN Reason: Hypoglycemia Protocol Diclofenac Sodium (Voltaren) 50 mg PO QID [facility] Last Admin: 04/19/18 21:47 Dose: 50 mg Enoxaparin Sodium (Lovenox) 40 mg SC DAILY [facility] Finasteride (Proscar) 5 mg PO DAILY [facility] Folic Acid (Folic Acid) 1 mg PO DAILY [facility] Furosemide (Lasix) 40 mg PO DAILY [facility] Gabapentin (Neurontin) 300 mg PO BID [facility] Last Admin: 04/19/18 17:45 Dose: 300 mg Glipizide (Glucotrol) 10 mg PO DAILY [facility] Glucagon (Glucagen Diagnostic Kit) 0 mg IM STAT PRN; Protocol PRN Reason: Hypoglycemia Protocol Dextrose (Dextrose 5% In Water 1000 Ml) 1,000 mls @ 0 mls/hr IV .Q0M PRN; Protocol; Per Protocol PRN Reason: Hypoglycemia Protocol Piperacillin Sod/Tazobactam Sod (Zosyn 3.375 Gm Iv Premix) 3.375 gm in 50 mls @ 100 mls/hr IVPB Q6H [facility] PRN Reason: Protocol Last Admin: 04/20/18 06:12 Dose: 100 mls/hr Insulin Aspart (Novolog) 0 unit SC [facility] PRN Reason: Protocol Last Admin: 04/19/18 21:26 Dose: Not Given Insulin Glargine (Lantus) 25 unit SC DAILY [facility] Metformin HCl (Glucophage) 1,000 mg PO BID [facility] Last Admin: 04/19/18 17:45 Dose: 1,000 mg Methotrexate (Methotrexate) 7.5 mg PO QWK [facility] Methylprednisolone (Solu-Medrol) 40 mg IVP Q8H [facility] Last Admin: 04/20/18 02:36 Dose: 40 mg Oxycodone/Acetaminophen (Percocet 5/325 Mg Tab) 1 tab PO Q6 PRN PRN Reason: Pain, severe (8-10) Stop: 04/22/18 15:16 Last Admin: 04/19/18 16:41 Dose: 1 tab Pantoprazole Sodium (Protonix Ec Tab) 40 mg PO DAILY [facility] Rosuvastatin Calcium (Crestor) 5 mg PO HS [facility] Last Admin: 04/19/18 21:47 Dose: 5 mg Saccharomyces Boulardii (Florastor) 250 mg PO Q12 [facility] Last Admin: 04/19/18 23:09 Dose: 250 mg Fluticasone/Salmeterol (Advair Diskus 250/50) 1 puff INH RQ12 [facility] Last Admin: 04/19/18 19:36 Dose: Not Given Tamsulosin HCl (Flomax) 0.4 mg PO DAILY [facility] Theophylline (Cb-24) 400 mg PO DAILY [facility] Tiotropium [place] (Spiriva) 18 mcg INH RQ24 [facility] Tramadol HCl (Ultram) 50 mg PO Q6H PRN PRN Reason: Pain, moderate (4-7) Last Admin: 04/19/18 21:47 Dose: 50 mg - Labs Labs: 04/19/18 09:40 04/19/18 09:40 PT 10.9 SECONDS (9.7-12.2) 04/19/18 09:40 INR 1.0 04/19/18 09:40 APTT 31 SECONDS (21-34) 04/19/18 09:40 - Constitutional Appears: Non-toxic, No Acute Distress - Head Exam Head Exam: NORMAL INSPECTION - Eye Exam Eye Exam: EOMI, PERRL Pupil Exam: NORMAL ACCOMODATION - ENT Exam ENT Exam: Mucous Membranes Moist - Respiratory Exam Respiratory Exam: Decreased Breath Sounds, Wheezes, NORMAL BREATHING PATTERN. absent: Accessory Muscle Use, Respiratory Distress Additional comments: on NC - Cardiovascular Exam Cardiovascular Exam: REGULAR RHYTHM, +S1, +S2 - GI/Abdominal Exam GI & Abdominal Exam: Soft, Normal Bowel Sounds. absent: Distended, Firm, Guarding, Tenderness - Extremities Exam Extremities Exam: Normal Inspection - Back Exam Back Exam: NORMAL INSPECTION - Neurological Exam Neurological Exam: Alert, Awake, CN II-XII Intact, Oriented x3 - Psychiatric Exam Psychiatric exam: Normal Affect, Normal Mood Assessment and Plan - Assessment and Plan (Free Text) Assessment: COPD Exacerbation - CXR: no acute disease - Patient has home O2 @ 2L [place], ambulates with walker with assistance, has nebulizer at home uses it every 4 hours Medications: - Theophylline 300 mg PO Daily - Albuterol INH RQ4, added Spiriva Qdaily, added Advair - Solumedrol 40mg IVP Q12, will switch to PO taper tomorrow - Will discontinue Zosyn tomorrow. Hypertension - Lasix 20 mg PO daily - ECHO: 65% LVEF Hypercholesterimia - Rosuvastatin 5mg PO HS - T chol 127, LDL 56, HDL 56, Trig 85 T2DM - Accuchecks - ISS - high (due to steroids) - Glipizide 10mg PO Daily - Glargine 25 unit SC Daily - Metformin 1000mg PO BID - HbA1c 7.6 Gout - Allopurinol 100mg PO Daily - Colchicine 0.6mg PO Daily BPH - Resumed Flomax 0.4mg PO Daily - Finasteride 5mg PO Daily Prophylactic Measures - GI PPX: Protonix (due to steroids) - DVT PPX: SCDs c/i due to lower extremity swelling, Lovenox daily - PT Eval -> rec dc to [facility] - FALL RISK Dr. Shelley discussed with patient that he should go back to rehab and not leave as he would benefit from longer stay in a facility. All medical management as per Dr. Shelley
[2018-04-20 08:00] LABS: BASO % 0.1 % (0.0-2.0); HEMOGLOBIN 11.9 g/dL (12.0-18.0); LYMPH # 0.8 K/uL (1.0-4.3); LYMPH % 6.9 % (20.0-40.0); MEAN CELL VOLUME 95.1 fL (80.0-94.0); MEAN CORPUSCULAR HEMOGLOBIN 31.8 pg (27.0-31.0); MEAN CORPUSCULAR HGB CONC 33.4 g/dL (33.0-37.0); MEAN PLATELET VOLUME 8.7 fL (7.2-11.7); MONO # 0.3 K/uL (0.0-0.8); MONO % 2.9 % (0.0-10.0); NEUT # 9.8 K/uL (1.8-7.0); NEUT % 90.1 % (50.0-75.0); PLATELET COUNT 251 K/uL (130-400); RBC 3.76 Mil/uL (4.40-5.90); RED CELL DISTRIBUTION WIDTH 17.2 % (11.5-14.5); WHITE BLOOD COUNT 10.9 K/uL (4.8-10.8)
[2018-04-20 08:15] LABS: ALB/GLOB RATIO 1.4 (1.0-2.1); ALBUMIN 3.9 g/dL (3.5-5.0); ALT/SGPT 42 U/L (21-72); AST/SGOT 19 U/L (17-59); BLOOD UREA NITROGEN 25 mg/dL (9-20); CALCIUM 9.3 mg/dl (8.6-10.4); GFR NON-AFRICAN AMERICAN > 60; HDL CHOLESTEROL 56 mg/dL (30-70)
[2018-04-20 08:40] LABS: LDL CHOLESTEROL 56 mg/dL (0-129)
[2018-04-20] MEDS: Fluticasone-Salmeterol 250-50mcg Diskus INH SCH ×2 (09:45→19:34)
[2018-04-20] MEDS: Tiotropium 18 mcg Cap For Inhalation INH SCH (09:45)
[2018-04-20] MEDS: Saccharomyces Boulardi 250 mg Cap PO SCH ×2 (09:59→21:30)
[2018-04-20] MEDS: Enoxaparin 40 mg Syringe SC SCH (09:59)
[2018-04-20] MEDS: Pantoprazole 40 mg EC Tab PO SCH (10:00)
[2018-04-20] MEDS: Diclofenac Sodium Delayed Release 50 mg EC Tab PO SCH ×4 (10:00→21:32)
[2018-04-20 10:05] LABS: BANDS 1 % (0-2); LYMPHOCYTE 3 % (20-40); MONOCYTE 4 % (0-10); NEUTROPHIL 92 % (50-75); PLATELET ESTIMATE NORMAL (NORMAL); TOTAL CELLS COUNTED 100
[2018-04-20 10:06] LABS: ANISOCYTOSIS SLIGHT
[2018-04-20] MEDS: (Novolog) Insulin Aspart, Recombinant 100 u/ml 10 ml vial SC SCH ×4 (10:15→21:29)
[2018-04-20] MEDS: (Lantus) Insulin Glargine, Recombinant SC SCH (10:17)
[2018-04-20] MEDS: Theophylline 200mg ER 24 hrs Cap PO SCH (10:51)
--- NOTE | 2018-04-20 12:58 | CARD ---
APPROVED REPORT Date of service: 04/19/2018 EKG Measurement Heart [id number] <Conclusion> Normal sinus rhythm Left anterior fascicular block Abnormal ECG
[2018-04-20] MEDS: guaiFENesin DM 100 mg-10 mg/5 ml UD PO PRN (18:56)
[2018-04-20] MEDS: Oxycodone/Acetaminophen 5/325 mg Tab PO PRN (21:35)
[2018-04-21] MEDS: MethylPREDNISolone 40 mg Vial IVP SCH ×3 (02:25→21:15)
[2018-04-21] MEDS: Albuterol 0.083% Inhal Sol (2.5 mg/3 mL) UD INH SCH ×6 (03:14→23:35)
[2018-04-21] MEDS: guaiFENesin DM 100 mg-10 mg/5 ml UD PO PRN ×2 (04:05→18:42)
[2018-04-21] MEDS: Piperacill/Tazo 3.375gm in Dex 3.375 GM/50 ML BAG IVPB SCH (06:09)
--- NOTE | 2018-04-21 07:28 | CP.PCM.PN ---
Subjective - Date & Time of Evaluation Date of Evaluation: 04/21/18 Time of Evaluation: 08:00 - Subjective Subjective: PGY3 medicine progress note for Dr. Shelley: Patient was seen and examined at bedside this morning. He reports minor SOB but states that with the breathing treatments he feels as his breathing has improved since yesterday. Still reports cough with clear sputum. He denies fever /chills. Patient states he is tolerating his diet, had a BM yesterday and has no difficulty urinating. He is able to walk with PT but still feels unstable. Discussed with patient that he should return to rehab center. Objective - Vital Signs/Intake and Output Vital Signs (last 24 hours): Temp Pulse Resp BP Pulse Ox 98.1 F 100 H 20 139/63 97 04/20/18 23:45 04/20/18 23:45 04/20/18 23:45 04/20/18 23:45 04/20/18 23:45 Intake and Output: 04/21/18 04/21/18 06:59 18:59 Output Total 400 Balance -400 - Medications Medications: Current Medications Albuterol Sulfate (Albuterol 0.083% Inhal Vibha (2.5 Mg/3 Ml) Ud) 2.5 mg INH RQ4 [facility] Last Admin: 04/21/18 03:14 Dose: 2.5 mg Allopurinol (Zyloprim) 100 mg PO DAILY [facility] Last Admin: 04/20/18 09:59 Dose: 100 mg Colchicine (Colocrys) 0.6 mg PO DAILY [facility] Last Admin: 04/20/18 09:59 Dose: 0.6 mg Dextrose (Dextrose 50% Inj) 0 ml IV STAT PRN; Protocol PRN Reason: Hypoglycemia Protocol Dextrose (Glutose 15) 0 gm PO ONCE PRN; Protocol PRN Reason: Hypoglycemia Protocol Diclofenac Sodium (Voltaren) 50 mg PO QID [facility] Last Admin: 04/20/18 21:32 Dose: 50 mg Enoxaparin Sodium (Lovenox) 40 mg SC DAILY [facility] Last Admin: 04/20/18 09:59 Dose: 40 mg Finasteride (Proscar) 5 mg PO DAILY [facility] Last Admin: 04/20/18 09:59 Dose: 5 mg Folic Acid (Folic Acid) 1 mg PO DAILY [facility] Last Admin: 04/20/18 09:59 Dose: 1 mg Furosemide (Lasix) 20 mg PO DAILY [facility] Last Admin: 04/20/18 10:51 Dose: 20 mg Gabapentin (Neurontin) 300 mg PO BID [facility] Last Admin: 04/20/18 17:55 Dose: 300 mg Glipizide (Glucotrol) 10 mg PO DAILY [facility] Last Admin: 04/20/18 09:59 Dose: 10 mg Glucagon (Glucagen Diagnostic Kit) 0 mg IM STAT PRN; Protocol PRN Reason: Hypoglycemia Protocol Guaifenesin/Dextromethorphan (Robitussin Dm) 5 ml PO Q4H PRN PRN Reason: Cough Last Admin: 04/21/18 04:05 Dose: 5 ml Dextrose (Dextrose 5% In Water 1000 Ml) 1,000 mls @ 0 mls/hr IV .Q0M PRN; Protocol; Per Protocol PRN Reason: Hypoglycemia Protocol Piperacillin Sod/Tazobactam Sod (Zosyn 3.375 Gm Iv Premix) 3.375 gm in 50 mls @ 100 mls/hr IVPB Q6H [facility] PRN Reason: Protocol Last Admin: 04/21/18 06:09 Dose: 100 mls/hr Insulin Aspart (Novolog) 0 unit SC ACHS [facility] PRN Reason: Protocol Last Admin: 04/20/18 21:29 Dose: Not Given Insulin Glargine (Lantus) 25 unit SC DAILY [facility] Last Admin: 04/20/18 10:17 Dose: 25 units Metformin HCl (Glucophage) 1,000 mg PO BID [facility] Last Admin: 04/20/18 17:55 Dose: 1,000 mg Methotrexate (Methotrexate) 7.5 mg PO QWK [facility] Methylprednisolone (Solu-Medrol) 40 mg IVP Q8H [facility] Last Admin: 04/21/18 02:25 Dose: 40 mg Oxycodone/Acetaminophen (Percocet 5/325 Mg Tab) 1 tab PO Q6 PRN PRN Reason: Pain, severe (8-10) Stop: 04/22/18 15:16 Last Admin: 04/20/18 21:35 Dose: 1 tab Pantoprazole Sodium (Protonix Ec Tab) 40 mg PO DAILY [facility] Last Admin: 04/20/18 10:00 Dose: 40 mg Rosuvastatin Calcium (Crestor) 5 mg PO HS [facility] Last Admin: 04/20/18 21:30 Dose: 5 mg Saccharomyces Boulardii (Florastor) 250 mg PO Q12 [facility] Last Admin: 04/20/18 21:30 Dose: 250 mg Fluticasone/Salmeterol (Advair Diskus 250/50) 1 puff INH RQ12 [facility] Last Admin: 04/20/18 19:34 Dose: 1 puff Tamsulosin HCl (Flomax) 0.4 mg PO DAILY [facility] Last Admin: 04/20/18 09:59 Dose: 0.4 mg Theophylline (Cb-24) 400 mg PO DAILY [facility] Last Admin: 04/20/18 10:51 Dose: Not Given Tiotropium [place] (Spiriva) 18 mcg INH RQ24 [facility] Last Admin: 04/20/18 09:45 Dose: Not Given Tramadol HCl (Ultram) 50 mg PO Q6H PRN PRN Reason: Pain, moderate (4-7) Last Admin: 04/21/18 04:06 Dose: 50 mg - Labs Labs: 04/20/18 07:46 04/20/18 07:46 PT 10.9 SECONDS (9.7-12.2) 04/19/18 09:40 INR 1.0 04/19/18 09:40 APTT 31 SECONDS (21-34) 04/19/18 09:40 - Constitutional Appears: Non-toxic, No Acute Distress - Head Exam Head Exam: ATRAUMATIC, NORMAL INSPECTION - Eye Exam Eye Exam: EOMI - ENT Exam ENT Exam: Mucous Membranes Moist - Respiratory Exam Respiratory Exam: Decreased Breath Sounds, Wheezes, NORMAL BREATHING PATTERN Additional comments: on NC - Cardiovascular Exam Cardiovascular Exam: REGULAR RHYTHM, +S1, +S2 - GI/Abdominal Exam GI & Abdominal Exam: Soft, Normal Bowel Sounds (oobese). absent: Distended, Firm, Guarding, Tenderness - Extremities Exam Extremities Exam: Normal Inspection. absent: Calf Tenderness, Pedal Edema - Back Exam Back Exam: NORMAL INSPECTION - Neurological Exam Neurological Exam: Alert, Awake, CN II-XII Intact, Oriented x3 - Psychiatric Exam Psychiatric exam: Normal Affect, Normal Mood Assessment and Plan - Assessment and Plan (Free Text) Assessment: COPD Exacerbation -Improving - CXR: no acute disease - Patient has home O2 @ 2L [place], ambulates with walker with assistance, has nebulizer at home uses it every 4 hours Medications: - Theophylline 300 mg PO Daily - Albuterol INH RQ4, Spiriva Qdaily, Advair - Solumedrol 40mg IVP Q12, will switch to PO taper tomorrow - Zosyn discontinued Hypertension - Lasix 20 mg PO daily - ECHO: 65% LVEF Hypercholesterimia - Rosuvastatin 5mg PO HS - T chol 127, LDL 56, HDL 56, Trig 85 T2DM - Accuchecks - ISS - high (due to steroids) - Glipizide 10mg PO Daily - Glargine 25 unit SC Daily - Metformin 1000mg PO BID - HbA1c 7.6 Gout - Allopurinol 100mg PO Daily - Colchicine 0.6mg PO Daily BPH - Resumed Flomax 0.4mg PO Daily - Finasteride 5mg PO Daily Prophylactic Measures - GI PPX: Protonix (due to steroids) - DVT PPX: SCDs c/i due to lower extremity swelling, Lovenox daily - PT Eval -> rec dc to [facility] Shelley discussed with patient that he should go back to rehab and not leave as he would benefit from longer stay in a facility. Patient today stated he did not want to go to rehab. Likely DC tomorrow with home med and prednisone taper. (scripts have not been sent) All medical management as per Dr. Shelley
[2018-04-21 07:31] LABS: BASO % 0.2 % (0.0-2.0); HEMOGLOBIN 11.4 g/dL (12.0-18.0); LYMPH # 0.6 K/uL (1.0-4.3); LYMPH % 4.2 % (20.0-40.0); MEAN CELL VOLUME 95.4 fL (80.0-94.0); MEAN CORPUSCULAR HEMOGLOBIN 31.6 pg (27.0-31.0); MEAN CORPUSCULAR HGB CONC 33.2 g/dL (33.0-37.0); MEAN PLATELET VOLUME 8.8 fL (7.2-11.7); MONO # 0.8 K/uL (0.0-0.8); MONO % 6.2 % (0.0-10.0); NEUT # 11.7 K/uL (1.8-7.0); NEUT % 89.4 % (50.0-75.0); PLATELET COUNT 253 K/uL (130-400); RED CELL DISTRIBUTION WIDTH 17.3 % (11.5-14.5); WHITE BLOOD COUNT 13.1 K/uL (4.8-10.8)
[2018-04-21 07:38] LABS: ALBUMIN 3.8 g/dL (3.5-5.0); BLOOD UREA NITROGEN 26 mg/dL (9-20); GFR NON-AFRICAN AMERICAN 58
[2018-04-21 07:39] LABS: ALB/GLOB RATIO 1.3 (1.0-2.1); ALT/SGPT 38 U/L (21-72); AST/SGOT 16 U/L (17-59)
--- NOTE | 2018-04-21 08:04 | HP ---
HISTORY OF PRESENT ILLNESS: An 78-year-old male, chief complaint weakness, fatigue, tiredness, and shortness of breath. The patient came to the ER, advised admission. The patient states he has a history of COPD, severe arthritis, gout. PHYSICAL EXAMINATION: GENERAL: The patient is awake, alert, and oriented. VITAL SIGNS: Temperature 98 and pulse 90. HEENT: Within normal limits. NECK: Supple. CHEST: Symmetrical. HEART: Regular. ABDOMEN: Soft. EXTREMITIES: No edema. ASSESSMENT AND PLAN: The patient suffers chronic obstructive pulmonary disease, bronchitis. The patient to get bed rest. Supportive care. Bronchodilator. Abundio Shelley MD
[2018-04-21] MEDS: (Novolog) Insulin Aspart, Recombinant 100 u/ml 10 ml vial SC SCH ×4 (08:30→21:54)
[2018-04-21] MEDS: Enoxaparin 40 mg Syringe SC SCH (10:44)
[2018-04-21] MEDS: Saccharomyces Boulardi 250 mg Cap PO SCH ×2 (10:44→21:15)
[2018-04-21] MEDS: Pantoprazole 40 mg EC Tab PO SCH (10:45)
[2018-04-21] MEDS: (Lantus) Insulin Glargine, Recombinant SC SCH (10:46)
[2018-04-21] MEDS: Diclofenac Sodium Delayed Release 50 mg EC Tab PO SCH ×4 (10:47→21:15)
[2018-04-21] MEDS: Fluticasone-Salmeterol 250-50mcg Diskus INH SCH ×2 (10:53→20:05)
[2018-04-21] MEDS: Tiotropium 18 mcg Cap For Inhalation INH SCH (10:53)
[2018-04-21 10:56] LABS: LYMPHOCYTE 4 % (20-40); TOTAL CELLS COUNTED 100
[2018-04-21 10:57] LABS: ANISOCYTOSIS SLIGHT; MONOCYTE 8 % (0-10); NEUTROPHIL 88 % (50-75); OVALOCYTES SLIGHT; PLATELET ESTIMATE NORMAL (NORMAL)
[2018-04-21] MEDS: Theophylline 200mg ER 24 hrs Cap PO SCH (11:00)
[2018-04-22] MEDS: Albuterol 0.083% Inhal Sol (2.5 mg/3 mL) UD INH SCH ×5 (03:25→20:11)
[2018-04-22 06:26] LABS: BASO % 0.1 % (0.0-2.0); HEMOGLOBIN 11.2 g/dL (12.0-18.0); LYMPH # 0.7 K/uL (1.0-4.3); LYMPH % 6.3 % (20.0-40.0); MEAN CORPUSCULAR HEMOGLOBIN 30.1 pg (27.0-31.0); MEAN CORPUSCULAR HGB CONC 31.7 g/dL (33.0-37.0); MEAN PLATELET VOLUME 8.6 fL (7.2-11.7); MONO # 0.9 K/uL (0.0-0.8); MONO % 7.7 % (0.0-10.0); NEUT # 9.7 K/uL (1.8-7.0); NEUT % 85.9 % (50.0-75.0); PLATELET COUNT 243 K/uL (130-400); RBC 3.72 Mil/uL (4.40-5.90); RED CELL DISTRIBUTION WIDTH 17.3 % (11.5-14.5); WHITE BLOOD COUNT 11.3 K/uL (4.8-10.8)
--- NOTE | 2018-04-22 07:33 | CP.PCM.PN ---
Subjective - Date & Time of Evaluation Date of Evaluation: 04/22/18 Time of Evaluation: 08:00 - Subjective Subjective: PGY-2 medicine progress note for Dr. Shelley Patient was seen and examined at bedside in the AM. Patient states he continues to cough with white phlegm. Patient continues to refuse rehab as he just wants to go home. Patient states he uses his walker at home with assistance of his . Patient denies chest pain, shortness of breath, difficulty breathing, nausea, vomiting, diarrhea, constipation, fever or chills. Objective - Vital Signs/Intake and Output Vital Signs (last 24 hours): Temp Pulse Resp BP Pulse Ox 97.8 F 95 H 20 137/76 98 04/21/18 23:52 04/22/18 07:01 04/21/18 23:52 04/21/18 23:52 04/21/18 23:52 Intake and Output: 04/22/18 04/22/18 06:59 18:59 Intake Total 350 Output Total 2400 Balance -2049 - Medications Medications: Current Medications Albuterol Sulfate (Albuterol 0.083% Inhal Vibha (2.5 Mg/3 Ml) Ud) 2.5 mg INH RQ4 [facility] Last Admin: 04/22/18 03:25 Dose: 2.5 mg Allopurinol (Zyloprim) 100 mg PO DAILY [facility] Last Admin: 04/21/18 10:46 Dose: 100 mg Colchicine (Colocrys) 0.6 mg PO DAILY [facility] Last Admin: 04/21/18 10:47 Dose: 0.6 mg Dextrose (Dextrose 50% Inj) 0 ml IV STAT PRN; Protocol PRN Reason: Hypoglycemia Protocol Dextrose (Glutose 15) 0 gm PO ONCE PRN; Protocol PRN Reason: Hypoglycemia Protocol Diclofenac Sodium (Voltaren) 50 mg PO QID [facility] Last Admin: 04/21/18 21:15 Dose: 50 mg Enoxaparin Sodium (Lovenox) 40 mg SC DAILY [facility] Last Admin: 04/21/18 10:44 Dose: 40 mg Finasteride (Proscar) 5 mg PO DAILY [facility] Last Admin: 04/21/18 10:44 Dose: 5 mg Folic Acid (Folic Acid) 1 mg PO DAILY [facility] Last Admin: 04/21/18 11:00 Dose: 1 mg Furosemide (Lasix) 20 mg PO DAILY [facility] Last Admin: 04/21/18 10:47 Dose: 20 mg Gabapentin (Neurontin) 300 mg PO BID [facility] Last Admin: 04/21/18 17:52 Dose: 300 mg Glipizide (Glucotrol) 10 mg PO DAILY [facility] Last Admin: 04/21/18 10:44 Dose: 10 mg Glucagon (Glucagen Diagnostic Kit) 0 mg IM STAT PRN; Protocol PRN Reason: Hypoglycemia Protocol Guaifenesin/Dextromethorphan (Robitussin Dm) 5 ml PO Q4H PRN PRN Reason: Cough Last Admin: 04/21/18 18:42 Dose: 5 ml Dextrose (Dextrose 5% In Water 1000 Ml) 1,000 mls @ 0 mls/hr IV .Q0M PRN; Protocol; Per Protocol PRN Reason: Hypoglycemia Protocol Insulin Aspart (Novolog) 0 unit SC ACHS [facility] PRN Reason: Protocol Last Admin: 04/21/18 21:54 Dose: Not Given Insulin Glargine (Lantus) 25 unit SC DAILY [facility] Last Admin: 04/21/18 10:46 Dose: 25 units Metformin HCl (Glucophage) 1,000 mg PO BID [facility] Last Admin: 04/21/18 17:52 Dose: 1,000 mg Methotrexate (Methotrexate) 7.5 mg PO QWK [facility] Methylprednisolone (Solu-Medrol) 40 mg IVP Q12 [facility] Last Admin: 04/21/18 21:15 Dose: 40 mg Oxycodone/Acetaminophen (Percocet 5/325 Mg Tab) 1 tab PO Q6 PRN PRN Reason: Pain, severe (8-10) Stop: 04/22/18 15:16 Last Admin: 04/20/18 21:35 Dose: 1 tab Pantoprazole Sodium (Protonix Ec Tab) 40 mg PO DAILY [facility] Last Admin: 04/21/18 10:45 Dose: 40 mg Rosuvastatin Calcium (Crestor) 5 mg PO HS [facility] Last Admin: 04/21/18 21:15 Dose: 5 mg Saccharomyces Boulardii (Florastor) 250 mg PO Q12 [facility] Last Admin: 04/21/18 21:15 Dose: 250 mg Fluticasone/Salmeterol (Advair Diskus 250/50) 1 puff INH RQ12 [facility] Last Admin: 04/21/18 20:05 Dose: 1 puff Tamsulosin HCl (Flomax) 0.4 mg PO DAILY [facility] Last Admin: 04/21/18 10:46 Dose: 0.4 mg Theophylline (Cb-24) 400 mg PO DAILY [facility] Last Admin: 04/21/18 11:00 Dose: 400 mg Tiotropium [place] (Spiriva) 18 mcg INH RQ24 [facility] Last Admin: 04/21/18 10:53 Dose: Not Given Tramadol HCl (Ultram) 50 mg PO Q6H PRN PRN Reason: Pain, moderate (4-7) Last Admin: 04/21/18 14:36 Dose: 50 mg - Labs Labs: 04/22/18 06:15 04/21/18 07:11 PT 10.9 SECONDS (9.7-12.2) 04/19/18 09:40 INR 1.0 04/19/18 09:40 APTT 31 SECONDS (21-34) 04/19/18 09:40 - Constitutional Appears: No Acute Distress, Chronically Ill - Head Exam Head Exam: ATRAUMATIC, NORMAL INSPECTION - Eye Exam Eye Exam: EOMI, Normal appearance - ENT Exam ENT Exam: Mucous Membranes Moist - Respiratory Exam Respiratory Exam: NORMAL BREATHING PATTERN - Cardiovascular Exam Cardiovascular Exam: REGULAR RHYTHM, +S1, +S2 - GI/Abdominal Exam GI & Abdominal Exam: Soft, Normal Bowel Sounds. absent: Tenderness - Extremities Exam Extremities Exam: Normal Inspection - Neurological Exam Neurological Exam: Alert, Awake, Oriented x3 - Psychiatric Exam Psychiatric exam: Normal Affect - Skin Skin Exam: Normal Color Assessment and Plan - Assessment and Plan (Free Text) Assessment: COPD Exacerbation - Resolved - CXR: no acute disease - Patient has home O2 @ 2L [place], ambulates with walker with assistance, has nebulizer at home uses it every 4 hours Medications: - Theophylline 300 mg PO Daily - Albuterol INH RQ4, Spiriva Qdaily, Advair - Solumedrol 40mg IVP Q12, will switch to PO taper tomorrow - Zosyn discontinued Hypertension - Lasix 20 mg PO daily - ECHO: 65% LVEF Hypercholesterimia - Rosuvastatin 5mg PO HS - T chol 127, LDL 56, HDL 56, Trig 85 T2DM - Accuchecks - ISS - high (due to steroids) - Glipizide 10mg PO Daily - Glargine 25 unit SC Daily - Metformin 1000mg PO BID - HbA1c 7.6 Gout - Allopurinol 100mg PO Daily - Colchicine 0.6mg PO Daily BPH - Resumed Flomax 0.4mg PO Daily - Finasteride 5mg PO Daily Prophylactic Measures - GI PPX: Protonix (due to steroids) - DVT PPX: SCDs c/i due to lower extremity swelling, Lovenox daily - PT Eval -> rec dc to [facility]. Shelley discussed with patient that he should go back to rehab and not leave as he would benefit from longer stay in a facility. Patient today stated he did not want to go to rehab. Likely DC tomorrow with home med and prednisone taper. (scripts have not been sent) All medical management as per Dr. Shelley
[2018-04-22 07:58] LABS: ALB/GLOB RATIO 1.4 (1.0-2.1); ALBUMIN 3.6 g/dL (3.5-5.0); ALT/SGPT 41 U/L (21-72); AST/SGOT 20 U/L (17-59); BLOOD UREA NITROGEN 28 mg/dL (9-20); CALCIUM 9.1 mg/dl (8.6-10.4); GFR NON-AFRICAN AMERICAN > 60
[2018-04-22] MEDS: Fluticasone-Salmeterol 250-50mcg Diskus INH SCH ×2 (08:25→20:24)
[2018-04-22] MEDS: Tiotropium 18 mcg Cap For Inhalation INH SCH (08:26)
[2018-04-22] MEDS: (Novolog) Insulin Aspart, Recombinant 100 u/ml 10 ml vial SC SCH ×4 (08:30→21:19)
[2018-04-22 08:48] LABS: ANISOCYTOSIS SLIGHT; HYPOCHROMIC SLIGHT; LYMPHOCYTE 12 % (20-40); MONOCYTE 8 % (0-10); NEUTROPHIL 80 % (50-75); PLATELET ESTIMATE NORMAL (NORMAL); POIKILOCYTOSIS SLIGHT; TOTAL CELLS COUNTED 100
[2018-04-22 08:49] LABS: MICROCYTOSIS SLIGHT; OVALOCYTES SLIGHT
[2018-04-22] MEDS: Theophylline 200mg ER 24 hrs Cap PO SCH (10:31)
[2018-04-22] MEDS: MethylPREDNISolone 40 mg Vial IVP SCH ×2 (10:32→21:28)
[2018-04-22] MEDS: (Lantus) Insulin Glargine, Recombinant SC SCH (10:33)
[2018-04-22] MEDS: Enoxaparin 40 mg Syringe SC SCH (10:33)
[2018-04-22] MEDS: Saccharomyces Boulardi 250 mg Cap PO SCH ×2 (10:37→21:28)
[2018-04-22] MEDS: Diclofenac Sodium Delayed Release 50 mg EC Tab PO SCH ×4 (10:38→21:28)
[2018-04-22] MEDS: guaiFENesin DM 100 mg-10 mg/5 ml UD PO PRN (10:39)
[2018-04-22] MEDS: Pantoprazole 40 mg EC Tab PO SCH (10:56)
[2018-04-22] MEDS: Promethazine/Cod 6.25mg-10mg/5ml Syr UD PO PRN ×2 (17:42→21:46)
[2018-04-23] MEDS: Albuterol 0.083% Inhal Sol (2.5 mg/3 mL) UD INH SCH ×6 (00:54→19:26)
[2018-04-23] MEDS: guaiFENesin DM 100 mg-10 mg/5 ml UD PO PRN ×3 (01:21→22:13)
[2018-04-23] MEDS: Tiotropium 18 mcg Cap For Inhalation INH SCH (07:17)
[2018-04-23] MEDS: Fluticasone-Salmeterol 250-50mcg Diskus INH SCH ×2 (07:18→19:26)
[2018-04-23] MEDS: (Novolog) Insulin Aspart, Recombinant 100 u/ml 10 ml vial SC SCH ×4 (08:54→22:00)
[2018-04-23] MEDS: Pantoprazole 40 mg EC Tab PO SCH (10:23)
[2018-04-23] MEDS: (Lantus) Insulin Glargine, Recombinant SC SCH (10:23)
[2018-04-23] MEDS: MethylPREDNISolone 40 mg Vial IVP SCH ×2 (10:24→22:13)
[2018-04-23] MEDS: Theophylline 200mg ER 24 hrs Cap PO SCH (10:24)
[2018-04-23] MEDS: Saccharomyces Boulardi 250 mg Cap PO SCH ×2 (10:24→22:13)
[2018-04-23] MEDS: Diclofenac Sodium Delayed Release 50 mg EC Tab PO SCH ×4 (10:24→22:13)
[2018-04-23] MEDS: Enoxaparin 40 mg Syringe SC SCH (10:30)
[2018-04-24] MEDS: Albuterol 0.083% Inhal Sol (2.5 mg/3 mL) UD INH SCH ×6 (00:30→20:45)
[2018-04-24] MEDS: (Novolog) Insulin Aspart, Recombinant 100 u/ml 10 ml vial SC SCH ×4 (08:03→22:00)
[2018-04-24] MEDS: Fluticasone-Salmeterol 250-50mcg Diskus INH SCH ×2 (08:15→20:45)
[2018-04-24] MEDS: Tiotropium 18 mcg Cap For Inhalation INH SCH (08:17)
[2018-04-24] MEDS: Saccharomyces Boulardi 250 mg Cap PO SCH ×2 (11:43→21:53)
[2018-04-24] MEDS: Enoxaparin 40 mg Syringe SC SCH (11:43)
[2018-04-24] MEDS: (Lantus) Insulin Glargine, Recombinant SC SCH (11:43)
[2018-04-24] MEDS: MethylPREDNISolone 40 mg Vial IVP SCH ×2 (11:43→21:53)
[2018-04-24] MEDS: guaiFENesin DM 100 mg-10 mg/5 ml UD PO PRN ×2 (11:44→21:53)
[2018-04-24] MEDS: Diclofenac Sodium Delayed Release 50 mg EC Tab PO SCH ×4 (11:44→21:53)
[2018-04-24] MEDS: Pantoprazole 40 mg EC Tab PO SCH (11:44)
[2018-04-24] MEDS: Theophylline 200mg ER 24 hrs Cap PO SCH (11:53)
[2018-04-24] MEDS ORDERED: Albuterol 0.083% Inhal Sol (2.5 mg/3 mL) UD INH ONE (23:45)
[2018-04-25 08:13] VITALS: TEMP 98.6; O2SAT 97
[2018-04-25] MEDS: (Novolog) Insulin Aspart, Recombinant 100 u/ml 10 ml vial SC SCH ×2 (08:18→12:31)
[2018-04-25 08:38] VITALS: PULSE 69
--- NOTE | 2018-04-25 09:36 | CP.PCM.PN ---
Subjective - Date & Time of Evaluation Date of Evaluation: 04/25/18 Time of Evaluation: 09:27 - Subjective Subjective: PGY [address] Shelley Pt seen and examined at bedside. No acute events overnight. Patient continues to complain of coughing especially at night. Denies having any SOB, abd pain, N /V/D/C, F/C, CP. Patient is sitting comfortably in bed currently and has no specific complaints. Objective - Vital Signs/Intake and Output Vital Signs (last 24 hours): Temp Pulse Resp BP Pulse Ox 98.6 F 69 20 144/76 97 04/25/18 07:12 04/25/18 07:20 04/25/18 07:12 04/25/18 07:12 04/25/18 07:12 Intake and Output: 04/25/18 04/25/18 06:59 18:59 Output Total 200 Balance -200 - Medications Medications: Current Medications Allopurinol (Zyloprim) 100 mg PO DAILY [facility] Last Admin: 04/24/18 11:44 Dose: 100 mg Colchicine (Colocrys) 0.6 mg PO DAILY [facility] Last Admin: 04/24/18 11:44 Dose: 0.6 mg Dextrose (Dextrose 50% Inj) 0 ml IV STAT PRN; Protocol PRN Reason: Hypoglycemia Protocol Dextrose (Glutose 15) 0 gm PO ONCE PRN; Protocol PRN Reason: Hypoglycemia Protocol Diclofenac Sodium (Voltaren) 50 mg PO QID [facility] Last Admin: 04/24/18 21:53 Dose: 50 mg Enoxaparin Sodium (Lovenox) 40 mg SC DAILY [facility] Last Admin: 04/24/18 11:43 Dose: 40 mg Finasteride (Proscar) 5 mg PO DAILY [facility] Last Admin: 04/24/18 11:44 Dose: 5 mg Folic Acid (Folic Acid) 1 mg PO DAILY [facility] Last Admin: 04/24/18 11:44 Dose: 1 mg Furosemide (Lasix) 20 mg PO DAILY [facility] Last Admin: 04/24/18 11:44 Dose: 20 mg Gabapentin (Neurontin) 300 mg PO BID [facility] Last Admin: 04/24/18 17:42 Dose: 300 mg Glipizide (Glucotrol) 10 mg PO DAILY [facility] Last Admin: 04/24/18 11:44 Dose: 10 mg Glucagon (Glucagen Diagnostic Kit) 0 mg IM STAT PRN; Protocol PRN Reason: Hypoglycemia Protocol Guaifenesin/Dextromethorphan (Robitussin Dm) 5 ml PO Q4H PRN PRN Reason: Cough Last Admin: 04/24/18 21:53 Dose: 5 ml Insulin Aspart (Novolog) 0 unit SC ACHS [facility] PRN Reason: Protocol Last Admin: 04/25/18 08:18 Dose: 8 units Insulin Glargine (Lantus) 25 unit SC DAILY [facility] Last Admin: 04/24/18 11:43 Dose: 25 units Metformin HCl (Glucophage) 1,000 mg PO BID [facility] Last Admin: 04/24/18 17:42 Dose: 1,000 mg Methotrexate (Methotrexate) 7.5 mg PO QWK [facility] Methylprednisolone (Solu-Medrol) 40 mg IVP Q12 [facility] Last Admin: 04/24/18 21:53 Dose: 40 mg Pantoprazole Sodium (Protonix Ec Tab) 40 mg PO DAILY [facility] Last Admin: 04/24/18 11:44 Dose: 40 mg Promethazine HCl/Codeine (Phenergan/Codeine Oral Syrup) 5 ml PO QID PRN PRN Reason: Cough and congestion Last Admin: 04/22/18 21:46 Dose: 5 ml Rosuvastatin Calcium (Crestor) 5 mg PO HS [facility] Last Admin: 04/24/18 21:53 Dose: 5 mg Saccharomyces Boulardii (Florastor) 250 mg PO Q12 [facility] Last Admin: 04/24/18 21:53 Dose: 250 mg Fluticasone/Salmeterol (Advair Diskus 250/50) 1 puff INH RQ12 [facility] Last Admin: 04/24/18 20:45 Dose: 1 puff Tamsulosin HCl (Flomax) 0.4 mg PO DAILY [facility] Last Admin: 04/24/18 11:55 Dose: 0.4 mg Theophylline (Cb-24) 400 mg PO DAILY [facility] Last Admin: 04/24/18 11:53 Dose: 400 mg Tiotropium [place] (Spiriva) 18 mcg INH RQ24 [facility] Last Admin: 04/24/18 08:17 Dose: Not Given Tramadol HCl (Ultram) 50 mg PO Q6H PRN PRN Reason: Pain, moderate (4-7) Last Admin: 04/24/18 21:53 Dose: 50 mg - Labs Labs: 04/22/18 06:15 04/22/18 06:15 PT 10.9 SECONDS (9.7-12.2) 04/19/18 09:40 INR 1.0 04/19/18 09:40 APTT 31 SECONDS (21-34) 04/19/18 09:40 - Constitutional Appears: Non-toxic, No Acute Distress - Head Exam Head Exam: ATRAUMATIC, NORMOCEPHALIC - ENT Exam ENT Exam: Mucous Membranes Moist - Respiratory Exam Respiratory Exam: Clear to Ausculation Bilateral, Wheezes (lower lobe expriatory ). absent: Accessory Muscle Use, Rales, Rhonchi, Respiratory Distress - Cardiovascular Exam Cardiovascular Exam: REGULAR RHYTHM, +S1, +S2. absent: Gallop, Rubs, Murmur - GI/Abdominal Exam GI & Abdominal Exam: Soft, Normal Bowel Sounds. absent: Distended, Firm, Guarding, Rigid, Tenderness, Organomegaly - Neurological Exam Neurological Exam: Alert, Awake, Oriented x3 - Psychiatric Exam Psychiatric exam: Normal Affect, Normal Mood - Skin Skin Exam: Dry, Intact, Normal Color, Warm Assessment and Plan - Assessment and Plan (Free Text) Assessment: COPD Exacerbation - Resolved - CXR: no acute disease - Patient has home O2 @ 2L [place], ambulates with walker with assistance, has nebulizer at home uses it every 4 hours Medications: - Theophylline 300 mg PO Daily - Albuterol INH RQ4, Spiriva Qdaily, Advair - Solumedrol 40mg IVP Q12, will switch to PO taper tomorrow - Zosyn discontinued Hypertension - Lasix 20 mg PO daily - ECHO: 65% LVEF Hypercholesterimia - Rosuvastatin 5mg PO HS - T chol 127, LDL 56, HDL 56, Trig 85 T2DM - Accuchecks - ISS - high (due to steroids) - Glipizide 10mg PO Daily - Glargine 25 unit SC Daily - Metformin 1000mg PO BID - HbA1c 7.6 Gout - Allopurinol 100mg PO Daily - Colchicine 0.6mg PO Daily BPH - Resumed Flomax 0.4mg PO Daily - Finasteride 5mg PO Daily Prophylactic Measures - GI PPX: Protonix (due to steroids) - DVT PPX: SCDs c/i due to lower extremity swelling, Lovenox daily - PT Eval -> rec dc to [facility] Shelley discussed with patient that he should go back to rehab and not leave as he would benefit from longer stay in a facility. Patient today stated he did not want to go to rehab. Likely DC tomorrow with home med and prednisone taper. (scripts have not been sent) All medical management as per Dr. Shelley Patient is stable for discharge home per Dr. Shelley Patient is to follow up with PMD upon discharge. Patient is discharged with Medrol dose jessica to be taken as directed. Patient is to continue taking home medications as prescribed. Please return to ED if symptoms return.
[2018-04-25] MEDS: Enoxaparin 40 mg Syringe SC SCH (10:37)
[2018-04-25] MEDS: guaiFENesin DM 100 mg-10 mg/5 ml UD PO PRN (10:37)
[2018-04-25] MEDS: (Lantus) Insulin Glargine, Recombinant SC SCH (10:37)
[2018-04-25] MEDS: Saccharomyces Boulardi 250 mg Cap PO SCH (10:37)
[2018-04-25] MEDS: Theophylline 200mg ER 24 hrs Cap PO SCH (10:37)
[2018-04-25 10:38] VITALS: BP 176/90
[2018-04-25] MEDS: Pantoprazole 40 mg EC Tab PO SCH (10:38)
[2018-04-25] MEDS: Diclofenac Sodium Delayed Release 50 mg EC Tab PO SCH (10:38)
[2018-04-25] MEDS: Fluticasone-Salmeterol 250-50mcg Diskus INH SCH (11:40)
[2018-04-25 11:56] LABS: BASO % 0.1 % (0.0-2.0); EOS # 0.1 K/uL (0.0-0.7); EOS % 0.9 % (0.0-4.0); HEMOGLOBIN 12.3 g/dL (12.0-18.0); LYMPH # 1.1 K/uL (1.0-4.3); MEAN CELL VOLUME 94.3 fL (80.0-94.0); MEAN CORPUSCULAR HEMOGLOBIN 31.4 pg (27.0-31.0); MEAN CORPUSCULAR HGB CONC 33.3 g/dL (33.0-37.0); MEAN PLATELET VOLUME 9.1 fL (7.2-11.7); MONO % 7.6 % (0.0-10.0); NEUT # 11.3 K/uL (1.8-7.0); NEUT % 83.4 % (50.0-75.0); NRBC % 0.1 % (0.0-2.0); PLATELET COUNT 278 K/uL (130-400); RBC 3.92 Mil/uL (4.40-5.90); RED CELL DISTRIBUTION WIDTH 16.5 % (11.5-14.5); WHITE BLOOD COUNT 13.6 K/uL (4.8-10.8)
[2018-04-25 12:34] LABS: ALB/GLOB RATIO 1.4 (1.0-2.1); ALBUMIN 3.6 g/dL (3.5-5.0); ALT/SGPT 38 U/L (21-72); AST/SGOT 13 U/L (17-59); BLOOD UREA NITROGEN 38 mg/dL (9-20); CALCIUM 9.5 mg/dl (8.6-10.4); GFR NON-AFRICAN AMERICAN > 60
[2018-04-25 12:38] LABS: LYMPHOCYTE 8 % (20-40); MONOCYTE 7 % (0-10); MYELOCYTE 1 % (0-0); NEUTROPHIL 84 % (50-75); PLATELET ESTIMATE NORMAL (NORMAL); TOTAL CELLS COUNTED 100
[2018-04-25 12:41] LABS: ANISOCYTOSIS SLIGHT; LARGE PLATELETS PRESENT; OVALOCYTES SLIGHT; POIKILOCYTOSIS SLIGHT
[2018-04-25] MEDS ORDERED: Albuterol-Ipratrop 3 mg / 0.5 (3 ml) UD INH SCH (16:00)
[2018-04-26] MEDS ORDERED: DUTASTERIDE 0.5 MG PO SCH (10:00)
[2018-04-26] MEDS ORDERED: ROSUVASTATIN 5 MG PO SCH (10:00)
== END 2018-04-25 15:09 | disposition home or self-care (01) | DRG 192 ==
LOC: C.ER 08:41 → C.9E 10:30 → C.5S 14:00 → OBSVTOIN 04-21 13:14
PROVIDERS: ADMIT Internal Medicine Pulmonary Disease; ATTEND Internal Medicine Pulmonary Disease
DX: J44.1 Chronic obstructive pulmonary disease with (acute) exacerbation (principal); N40.0 Benign prostatic hyperplasia without lower urinary tract symptoms; I25.10 Atherosclerotic heart disease of native coronary artery without angina pectoris; I50.9 Heart failure, unspecified; I11.0 Hypertensive heart disease with heart failure; Z87.891 Personal history of nicotine dependence; Z99.81 Dependence on supplemental oxygen; Z86.73 Personal history of transient ischemic attack (TIA), and cerebral infarction without residual deficits; Z86.718 Personal history of other venous thrombosis and embolism; E78.00 Pure hypercholesterolemia, unspecified; E11.51 Type 2 diabetes mellitus with diabetic peripheral angiopathy without gangrene; M06.9 Rheumatoid arthritis, unspecified

== ENCOUNTER 2018-09-04 05:13 | Inpatient (IN) | payer MEDICARE ==
[2018-09-04 05:14] VITALS: BMI 23.6
--- NOTE | 2018-09-04 05:32 | C.PDOC ---
History Of Present Illness 78 year old male with Hx of COPDon home o2 2LNo, CVAs with residual left arm weakness, diabetes, HTN, on 2 liters O2 at home presents with family member for SOB worsening since yesterday. Patient has also had cough and states he has chest wall pain when he coughs. He had one episode of diarrhea recently but otherwise no fever, nausea, vomiting, rash, or dark/bloody stools. No recent antibiotics Time Seen by Provider: 09/04/18 05:22 Chief Complaint (Nursing): Shortness Of Breath History Per: Patient, Family History/Exam Limitations: no limitations Onset/Duration Of Symptoms: Hrs Current Symptoms Are (Timing): Still Present Current Respiratory Medications: See Home Med List Associated Symptoms: Other (Cough, Chest wall pain w/ cough) Recent travel outside of the [place]: No Past Medical History Reviewed: Historical Data, Nursing Documentation, Vital Signs Vital Signs: Last Vital Signs Temp 97.8 F 09/04/18 05:25 Pulse 98 H 09/04/18 05:25 Resp 20 09/04/18 05:25 BP 177/93 H 09/04/18 05:25 Pulse Ox 98 09/04/18 05:25 - Medical History PMH: Arthritis, Asthma, CAD, CHF, COPD, CVA, Diabetes, Gastritis, HTN, Hypercholesterolemia, Rheumatoid Arthritis Denies: Chronic Kidney Disease Surgical History: Back Surgery (herniated disk x3, neck), Cholecystectomy (2010) - [facility] Procedures DESTRUCTION OF ASCENDING COLON, ENDO (12/08/15) EXCISION OF STOMACH, ENDO, DIAGN (12/08/15) LAPAROSCOPIC CHOLECYSTECTOMY (07/26/14) Family History: States: Diabetes - Social History Hx Tobacco Use: Yes Hx Alcohol Use: No Hx Substance Use: No - Immunization History Hx Tetanus Toxoid Vaccination: (unk) Hx Influenza Vaccination: Yes Hx Pneumococcal Vaccination: Yes Review Of Systems Except As Marked, All Systems Reviewed And Found Negative. Constitutional: Negative for: Fever, Chills Eyes: Negative for: Pain ENT: Negative for: Ear Pain Cardiovascular: Positive for: Chest Pain. Negative for: Palpitations Respiratory: Positive for: Cough, Shortness of Breath Gastrointestinal: Negative for: Nausea, Vomiting, Abdominal Pain Genitourinary: Negative for: Dysuria Musculoskeletal: Negative for: Neck Pain Skin: Negative for: Rash Physical Exam - Physical Exam Appears: Non-toxic, Other (Speaking in complete sentences) Skin: Normal Color, Warm, Dry Head: Atraumatic, Normacephalic Eye(s): bilateral: Normal Inspection Oral Mucosa: Moist Neck: Normal, Supple Chest: Symmetrical, No Tenderness Cardiovascular: Rhythm Regular Respiratory: No Rales, No Rhonchi, Wheezing (Throughout sanchez) Gastrointestinal/Abdominal: Soft, No Tenderness Back: No CVA Tenderness Extremity: Normal ROM (x4), Other (Neurovascularly intact bilaterally) Neurological/Psych: Oriented x3, Normal Speech ED Course And Treatment - Laboratory Results Result Diagrams: 09/04/18 06:04 09/04/18 06:04 ECG: Interpreted By Me, Viewed By Me ECG Rhythm: Sinus Rhythm ECG Interpretation: Normal Interpretation Of ECG: No STEMI Rate From EC O2 Sat by Pulse Oximetry: 98 (Room air) Pulse Ox Interpretation: Normal Medical Decision Making Medical Decision Makin yr old male w/ hx of COPD on 2L home o2 p/w sob, cough. Also notes cp after extensive cough. Differential: COPD vs Pneumonia 0657 labs reviewed, largely unremarkable. appreciate consult w/ Dr. Shelley: to admit to his service. COPD exacerbation. Pt in NAD, agreeable to plan Disposition - Disposition Disposition Time: 07:00 Condition: GOOD - Clinical Impression Clinical Impression: COPD exacerbation - Scribe Statement The provider has reviewed the documentation as recorded by the Scribshadi Velez All medical record entries made by the Scribe were at my direction and personally dictated by me. I have reviewed the chart and agree that the record accurately reflects my personal performance of the history, physical exam, medical decision making, and the department course for this patient. I have also personally directed, reviewed, and agree with the discharge instructions and disposition.
[2018-09-04] MEDS ORDERED: cefTRIAXone IV 1 gm in Dextros 50 ML IVPB ONE (05:34)
[2018-09-04] MEDS ORDERED: Albuterol-Ipratrop 3 mg / 0.5 (3 ml) UD INH STA ×2 (05:34→06:51)
[2018-09-04] MEDS ORDERED: MethylPREDNISolone 40 mg Vial IVP STA (05:36)
[2018-09-04 06:07] LABS: BASO # 0.1 K/uL (0.0-0.2); BASO % 0.7 % (0.0-2.0); EOS # 2.1 K/uL (0.0-0.7); HEMOGLOBIN 12.8 g/dL (12.0-18.0); LYMPH # 1.2 K/uL (1.0-4.3); LYMPH % 11.8 % (20.0-40.0); MEAN CELL VOLUME 92.3 fL (80.0-94.0); MEAN CORPUSCULAR HEMOGLOBIN 29.6 pg (27.0-31.0); MEAN CORPUSCULAR HGB CONC 32.1 g/dL (33.0-37.0); MEAN PLATELET VOLUME 8.5 fL (7.2-11.7); MONO # 0.9 K/uL (0.0-0.8); MONO % 8.8 % (0.0-10.0); NEUT # 6.1 K/uL (1.8-7.0); NEUT % 58.7 % (50.0-75.0); RBC 4.32 Mil/uL (4.40-5.90); RED CELL DISTRIBUTION WIDTH 16.7 % (11.5-14.5); WHITE BLOOD COUNT 10.4 K/uL (4.8-10.8)
[2018-09-04] MEDS ORDERED: Albuterol-Ipratrop 3 mg / 0.5 (3 ml) UD ONE ×3 (06:11→23:16)
[2018-09-04 06:20] LABS: ALB/GLOB RATIO 1.5 (1.0-2.1); ALBUMIN 4.3 g/dL (3.5-5.0); ALT/SGPT 40 U/L (21-72); AST/SGOT 35 U/L (17-59); BLOOD UREA NITROGEN 16 mg/dL (9-20); CALCIUM 9.4 mg/dl (8.6-10.4); GFR NON-AFRICAN AMERICAN > 60
[2018-09-04 06:31] LABS: B-TYPE NATRIURETIC PEPTIDE 165 pg/mL (0-900)
--- NOTE | 2018-09-04 08:03 | RAD ---
Chest x-ray single frontal view HISTORY: Shortness of breath. COMPARISON: 04/19/2018 FINDINGS: Postsurgical changes in the cervical spine. Biapical pleural thickening with upper lobe granulomatous changes. Mild venous congestion. Patchy increased markings at the left lung base. Atherosclerotic calcification within the aorta. Cardiomegaly. Degenerative changes in the spine. Impression: Postsurgical changes in the cervical spine. Biapical pleural thickening with upper lobe granulomatous changes. Mild venous congestion. Patchy increased markings at the left lung base. Atherosclerotic calcification within the aorta. Cardiomegaly. Degenerative changes in the spine.
[2018-09-04] MEDS ORDERED: Albuterol-Ipratrop 3 mg / 0.5 (3 ml) UD INH PRN ×2 (11:20→21:15)
[2018-09-04] MEDS: Enoxaparin 40 mg Syringe SC SCH (12:08)
[2018-09-04] MEDS: (Novolog) Insulin Aspart, Recombinant 100 u/ml 10 ml vial SC SCH ×3 (12:08→23:14)
[2018-09-04] MEDS ORDERED: Enoxaparin 40 mg Syringe ONE (12:09)
[2018-09-04] MEDS ORDERED: (Novolog) Insulin Aspart, Recombinant 100 u/ml 10 ml vial ONE ×3 (12:10→23:16)
[2018-09-04] MEDS ORDERED: MethylPREDNISolone 40 mg Vial ONE ×2 (14:22→19:20)
[2018-09-04] MEDS: MethylPREDNISolone 40 mg Vial IVP SCH ×2 (14:42→19:19)
[2018-09-05] MEDS: MethylPREDNISolone 40 mg Vial IVP SCH ×4 (00:10→17:58)
[2018-09-05 01:31] VITALS: RESP 20
[2018-09-05] MEDS: (Novolog) Insulin Aspart, Recombinant 100 u/ml 10 ml vial SC SCH ×4 (07:29→22:36)
--- NOTE | 2018-09-05 09:41 | HP ---
HISTORY OF PRESENT ILLNESS: Mr. Connolly came to the hospital with a chief complaint of feeling shortness of breath, wheezing, fatigue, tiredness and cough outpatient therapy. PHYSICAL EXAMINATION: GENERAL: The patient is awake, alert and oriented. VITAL SIGNS: Temperature is 98, pulse is 90. HEENT: Within normal limits. NECK: Supple. CHEST: Symmetrical. HEART: Regular. ABDOMEN: Soft. EXTREMITIES: No edema. IMPRESSION AND PLAN: The patient steroid, bronchodilators, antibiotics. Supportive care. Abundio Shelley MD
--- NOTE | 2018-09-05 09:55 | CP.PCM.PN ---
Subjective - Date & Time of Evaluation Date of Evaluation: 09/05/18 Time of Evaluation: 09:55 - Subjective Subjective: PGY2 Medicine Note for Dr. Shelley Patient seen and examined this morning at bedside. Patient was admitted yesterday for a COPD exacerbation. He is still experiencing some shortness of breath and wheezing. He recently had a breathing treatment and is currently feeling well. He has no other complaints at this time. Denies fevers, chills, nausea, vomiting, diarrhea, constipation. PMD: Dr. Shelley PMHx: HTN, Hypercholesterimia, T2DM, COPD, Gout, and BPH PSHx: cholecystectomy, back surgery Meds: As per OCT, reviewed and confirmed Allergies: Denies Objective - Vital Signs/Intake and Output Vital Signs (last 24 hours): Temp Pulse Resp BP Pulse Ox 98.7 F 65 20 142/80 95 09/05/18 08:00 09/05/18 08:00 09/05/18 08:00 09/05/18 08:00 09/05/18 08:00 Intake and Output: 09/05/18 09/05/18 06:59 18:59 Intake Total 200 Output Total 701 Balance -501 - Medications Medications: Current Medications Albuterol/Ipratropium (Duoneb 3 Mg/0.5 Mg (3 Ml) Ud) 3 ml INH RQ4 PRN PRN Reason: Shortness of Breath Last Admin: 09/05/18 03:15 Dose: 3 ml Enoxaparin Sodium (Lovenox) 40 mg SC DAILY [facility] Last Admin: 09/04/18 12:08 Dose: 40 mg Insulin Aspart (Novolog) 0 unit SC ACHS [facility]; Protocol Last Admin: 09/05/18 07:29 Dose: Not Given Methylprednisolone (Solu-Medrol) 40 mg IVP Q6 [facility] Last Admin: 09/05/18 05:28 Dose: 40 mg Oxycodone/Acetaminophen (Percocet 5/325 Mg Tab) 2 tab PO Q6H PRN PRN Reason: Pain, severe (8-10) Stop: 09/07/18 11:21 - Labs Labs: 09/04/18 06:04 09/04/18 06:04 - Constitutional Appears: Non-toxic, No Acute Distress - Head Exam Head Exam: ATRAUMATIC, NORMOCEPHALIC - Eye Exam Eye Exam: Normal appearance - ENT Exam ENT Exam: Mucous Membranes Moist - Respiratory Exam Respiratory Exam: Decreased Breath Sounds, NORMAL BREATHING PATTERN. absent: Accessory Muscle Use, Rhonchi, Wheezes, Respiratory Distress - Cardiovascular Exam Cardiovascular Exam: REGULAR RHYTHM, +S1, +S2 - GI/Abdominal Exam GI & Abdominal Exam: Soft. absent: Distended, Firm, Guarding, Rigid, Tenderness - Extremities Exam Extremities Exam: Pedal Edema (2+ pitting b/l ). absent: Calf Tenderness - Neurological Exam Neurological Exam: Alert, Awake, Oriented x3 - Psychiatric Exam Psychiatric exam: Normal Affect, Normal Mood - Skin Skin Exam: Dry, Warm Assessment and Plan - Assessment and Plan (Free Text) Plan: COPD Exacerbation - CXR 09/04/18: Postsurgical changes in the cervical spine. Biapical pleural thickening with upper lobe granulomatous changes. Mild venous congestion. Patchy increased markings at the left lung base. Atherosclerotic calcification within the aorta. Cardiomegaly. Degenerative changes in the spine. - Patient uses continuous home O2 @ 2L [place], ambulates with walker with assistance, has nebulizer at home uses it every 4 hours - Blood cultures negative at 24 hours Medications: - Theophylline 300 mg PO Daily - Duoneb INH RQ4 - Solumedrol 40mg IVP Q6H Hypertension - Lasix increased from 20 mg PO Daily - ECHO (03/17/18): 65% LVEF Hypercholesterimia - Rosuvastatin 5mg PO HS Diabetes - Accuchecks ACHS - Hgb A1c 7.6 (04/20/18) - ISS - high (due to steroids) - Glipizide 10mg PO Daily - Glargine 25 unit SC Daily - Metformin 1000mg PO BID Gout - Allopurinol 100mg PO Daily, Colchicine 0.6mg PO Daily BPH - Flomax .4mg PO Daily Prophylactic Care - Protonix - DVT PPX: SCDs c/i due to lower extremity swelling, Lovenox daily - PT Eval - FALL RISK DISPO: COPD exacerbation. Continue steroids and bronchodilators. Continue to monitor breathing. If improved, possible discharge home tomorrow. All medical management as per Dr. Karsten Morris Huyen PGY2
[2018-09-05] MEDS: Enoxaparin 40 mg Syringe SC SCH (10:47)
[2018-09-05] MEDS: Albuterol-Ipratrop 3 mg / 0.5 (3 ml) UD INH SCH ×2 (15:20→19:25)
[2018-09-05] MEDS ORDERED: (Novolog) Insulin Aspart, Recombinant 100 u/ml 10 ml vial SC SCH (16:30)
[2018-09-05] MEDS: Oxycodone/Acetaminophen 5/325 mg Tab PO PRN (22:40)
[2018-09-06] MEDS: MethylPREDNISolone 40 mg Vial IVP SCH ×4 (00:22→21:51)
[2018-09-06] MEDS: Albuterol-Ipratrop 3 mg / 0.5 (3 ml) UD INH SCH ×6 (00:43→19:21)
[2018-09-06 07:21] LABS: BASO % 0.1 % (0.0-2.0); HEMOGLOBIN 11.7 g/dL (12.0-18.0); LYMPH # 0.5 K/uL (1.0-4.3); LYMPH % 3.3 % (20.0-40.0); MEAN CELL VOLUME 92.6 fL (80.0-94.0); MEAN CORPUSCULAR HEMOGLOBIN 29.9 pg (27.0-31.0); MEAN CORPUSCULAR HGB CONC 32.2 g/dL (33.0-37.0); MEAN PLATELET VOLUME 9.2 fL (7.2-11.7); MONO # 0.7 K/uL (0.0-0.8); MONO % 4.7 % (0.0-10.0); NEUT # 13.6 K/uL (1.8-7.0); NEUT % 91.9 % (50.0-75.0); PLATELET COUNT 223 K/uL (130-400); RBC 3.91 Mil/uL (4.40-5.90); RED CELL DISTRIBUTION WIDTH 16.4 % (11.5-14.5); WHITE BLOOD COUNT 14.8 K/uL (4.8-10.8)
[2018-09-06 08:17] LABS: ALB/GLOB RATIO 1.4 (1.0-2.1); ALBUMIN 3.8 g/dL (3.5-5.0); ALT/SGPT 42 U/L (21-72); AST/SGOT 30 U/L (17-59); BLOOD UREA NITROGEN 28 mg/dL (9-20); CALCIUM 8.9 mg/dl (8.6-10.4); GFR NON-AFRICAN AMERICAN > 60
[2018-09-06] MEDS: (Novolog) Insulin Aspart, Recombinant 100 u/ml 10 ml vial SC SCH ×4 (08:24→21:21)
[2018-09-06 09:00] LABS: ANISOCYTOSIS SLIGHT; BURR CELLS SLIGHT; HYPOCHROMIC SLIGHT; LYMPHOCYTE 4 % (20-40); MONOCYTE 5 % (0-10); NEUTROPHIL 91 % (50-75); PLATELET ESTIMATE NORMAL (NORMAL); POIKILOCYTOSIS SLIGHT; TOTAL CELLS COUNTED 100
[2018-09-06] MEDS: Pantoprazole 40 mg EC Tab PO SCH (09:34)
[2018-09-06] MEDS: Enoxaparin 40 mg Syringe SC SCH (09:35)
[2018-09-06] MEDS: Theophylline 300mg ER 24 hrs Cap PO SCH (09:36)
[2018-09-06] MEDS ORDERED: (Lantus) Insulin Glargine, Recombinant SC SCH ×2 (10:00→22:00)
[2018-09-06] MEDS ORDERED: Influenza Vaccine 60 mcg/0.5 mL SYR (4YR UP) IM ONE ×2 (10:00→11:30)
--- NOTE | 2018-09-06 15:15 | CP.PCM.PN ---
Subjective - Date & Time of Evaluation Date of Evaluation: 09/06/18 Time of Evaluation: 08:40 - Subjective Subjective: Medicine progress note ( Dr. Shelley's service) Patient was seen and examined at bedside. Patient states that he is with improve symptoms but still with mild wheezing and shortness of breath. Patient denies any symptoms of fever, chills, nausea, vomiting, chest pain, palpitations or dizziness. Objective - Vital Signs/Intake and Output Vital Signs (last 24 hours): Temp Pulse Resp BP Pulse Ox 97.9 F 80 20 139/80 98 09/06/18 08:00 09/06/18 13:42 09/06/18 08:00 09/06/18 09:34 09/06/18 13:42 Intake and Output: 09/06/18 09/06/18 06:59 18:59 Intake Total 120 Output Total 600 Balance -480 - Medications Medications: Current Medications Albuterol/Ipratropium (Duoneb 3 Mg/0.5 Mg (3 Ml) Ud) 3 ml INH RQ4 [facility] Last Admin: 09/06/18 11:00 Dose: 3 ml Allopurinol (Zyloprim) 100 mg PO DAILY [facility] Last Admin: 09/06/18 09:34 Dose: 100 mg Colchicine (Colocrys) 0.6 mg PO DAILY [facility] Last Admin: 09/06/18 09:36 Dose: 0.6 mg Enoxaparin Sodium (Lovenox) 40 mg SC DAILY [facility] Last Admin: 09/06/18 09:35 Dose: 40 mg Furosemide (Lasix) 20 mg PO DAILY [facility] Last Admin: 09/06/18 09:34 Dose: 20 mg Gabapentin (Neurontin) 300 mg PO BID [facility] Last Admin: 09/06/18 09:34 Dose: 300 mg Glipizide (Glucotrol) 10 mg PO DAILY [facility] Last Admin: 09/06/18 09:34 Dose: 10 mg Insulin Aspart (Novolog) [address] [facility]; Protocol Last Admin: 09/06/18 12:25 Dose: 8 units Insulin Glargine (Lantus) 25 unit SC [facility] Metformin HCl (Glucophage) 1,000 mg PO BID [facility] Last Admin: 09/06/18 09:34 Dose: 1,000 mg Methylprednisolone (Solu-Medrol) 40 mg IVP Q6 [facility] Last Admin: 09/06/18 13:01 Dose: 40 mg Oxycodone/Acetaminophen (Percocet 5/325 Mg Tab) 2 tab PO Q6H PRN PRN Reason: Pain, severe (8-10) Stop: 09/07/18 11:21 Last Admin: 09/05/18 22:40 Dose: 2 tab Pantoprazole Sodium (Protonix Ec Tab) 40 mg PO DAILY [facility] Last Admin: 09/06/18 09:34 Dose: 40 mg Rosuvastatin Calcium (Crestor) 5 mg PO HS [facility] Last Admin: 09/05/18 22:37 Dose: 5 mg Tamsulosin HCl (Flomax) 0.4 mg PO DAILY [facility] Last Admin: 09/06/18 09:36 Dose: 0.4 mg Theophylline (Cb-24) 300 mg PO DAILY [facility] Last Admin: 09/06/18 09:36 Dose: 300 mg - Labs Labs: 09/06/18 07:14 09/06/18 07:14 - Constitutional Appears: No Acute Distress - Head Exam Head Exam: ATRAUMATIC, NORMAL INSPECTION - Eye Exam Eye Exam: EOMI - ENT Exam ENT Exam: Mucous Membranes Moist - Respiratory Exam Respiratory Exam: Wheezes, NORMAL BREATHING PATTERN. absent: Respiratory Distress Additional comments: Diffuse expiratory wheezing - Cardiovascular Exam Cardiovascular Exam: REGULAR RHYTHM, +S1, +S2. absent: Murmur - GI/Abdominal Exam GI & Abdominal Exam: Soft, Normal Bowel Sounds. absent: Distended, Firm, Guard ing, Rigid, Tenderness - Extremities Exam Extremities Exam: Normal Inspection. absent: Calf Tenderness, Pedal Edema - Neurological Exam Neurological Exam: Alert, Awake, Oriented x3 - Psychiatric Exam Psychiatric exam: Normal Affect - Skin Skin Exam: Normal Color Assessment and Plan (1) COPD exacerbation Assessment & Plan: - CXR 09/04/18: Postsurgical changes in the cervical spine. Biapical pleural thickening with upper lobe granulomatous changes. Mild venous congestion. Patchy increased markings at the left lung base. Atherosclerotic calcification within the aorta. Cardiomegaly. Degenerative changes in the spine. - Blood cultures negative at 48 hours Medications: - Theophylline 300 mg PO Daily - Duoneb INH RQ4 - Solumedrol 40mg IVP Q12H Status: Acute (2) Diabetes mellitus Assessment & Plan: - Accuchecks ACHS - Hgb A1c 7.6 (04/20/18) - ISS - high (due to steroids) - Glipizide 10mg PO Daily - Glargine 25 unit SC Daily - Metformin 1000mg PO BID Status: Chronic (3) Hypertension Assessment & Plan: - Lasix increased from 20 mg PO Daily - ECHO (03/17/18): 65% LVEF Status: Acute (4) Hypercholesterolemia Assessment & Plan: - Rosuvastatin 5mg PO HS Status: Acute (5) Gout Assessment & Plan: - Allopurinol 100mg PO Daily, Colchicine 0.6mg PO Daily Status: Acute (6) BPH (benign prostatic hyperplasia) Assessment & Plan: - Flomax .4mg PO Daily Status: Acute (7) Prophylactic measure Assessment & Plan: GI: Protonix 40mg PO daily DVT: Lovenox 40mg SC daily PT Disposition: Plans for discharge tomorrow. Will discharge on steroid taper All plans and management discussed with Dr. Shelley Status: Acute
[2018-09-07] MEDS: Albuterol-Ipratrop 3 mg / 0.5 (3 ml) UD INH SCH ×4 (00:02→11:07)
[2018-09-07] MEDS: Oxycodone/Acetaminophen 5/325 mg Tab PO PRN (04:32)
[2018-09-07 07:41] LABS: BASO % 0.1 % (0.0-2.0); LYMPH # 0.7 K/uL (1.0-4.3); LYMPH % 5.1 % (20.0-40.0); MEAN CELL VOLUME 92.9 fL (80.0-94.0); MEAN CORPUSCULAR HEMOGLOBIN 29.8 pg (27.0-31.0); MEAN PLATELET VOLUME 9.5 fL (7.2-11.7); MONO # 1.3 K/uL (0.0-0.8); NEUT # 11.9 K/uL (1.8-7.0); NEUT % 85.8 % (50.0-75.0); PLATELET COUNT 237 K/uL (130-400); RBC 4.02 Mil/uL (4.40-5.90); RED CELL DISTRIBUTION WIDTH 16.4 % (11.5-14.5); WHITE BLOOD COUNT 13.9 K/uL (4.8-10.8)
[2018-09-07 08:00] LABS: ALB/GLOB RATIO 1.5 (1.0-2.1); ALBUMIN 3.9 g/dL (3.5-5.0); ALT/SGPT 47 U/L (21-72); AST/SGOT 29 U/L (17-59); BLOOD UREA NITROGEN 30 mg/dL (9-20); CALCIUM 9.3 mg/dl (8.6-10.4); GFR NON-AFRICAN AMERICAN > 60
[2018-09-07] MEDS: (Novolog) Insulin Aspart, Recombinant 100 u/ml 10 ml vial SC SCH ×2 (08:34→12:33)
[2018-09-07 08:57] LABS: LYMPHOCYTE 4 % (20-40); MONOCYTE 10 % (0-10); MYELOCYTE 1 % (0-0); NEUTROPHIL 85 % (50-75); PLATELET ESTIMATE NORMAL (NORMAL); TOTAL CELLS COUNTED 100
[2018-09-07 08:58] LABS: ANISOCYTOSIS SLIGHT; OVALOCYTES SLIGHT
[2018-09-07 08:59] LABS: HYPOCHROMIC SLIGHT
[2018-09-07] MEDS: Pantoprazole 40 mg EC Tab PO SCH (11:00)
[2018-09-07] MEDS: MethylPREDNISolone 40 mg Vial IVP SCH (11:01)
[2018-09-07] MEDS: Theophylline 300mg ER 24 hrs Cap PO SCH (11:01)
[2018-09-07] MEDS: Enoxaparin 40 mg Syringe SC SCH (11:02)
--- NOTE | 2018-09-07 11:20 | CP.PCM.PN ---
Subjective - Date & Time of Evaluation Date of Evaluation: 09/07/18 Time of Evaluation: 07:00 - Subjective Subjective: Medicine progress note ( Dr. Shelley's service) Patient was seen and examined at bedside. Patient states that his symptoms are improved and says he is not short of breath. Patient denies any symptoms of fever, chills, nausea, vomiting, chest pain, palpitations or dizziness. Objective - Vital Signs/Intake and Output Vital Signs (last 24 hours): Temp Pulse Resp BP Pulse Ox 97.6 F 89 20 147/76 97 09/06/18 23:31 09/06/18 23:45 09/06/18 23:31 09/07/18 11:00 09/06/18 23:31 - Medications Medications: Current Medications Albuterol/Ipratropium (Duoneb 3 Mg/0.5 Mg (3 Ml) Ud) 3 ml INH RQ4 [facility] Last Admin: 09/07/18 11:07 Dose: 3 ml Allopurinol (Zyloprim) 100 mg PO DAILY [facility] Last Admin: 09/07/18 11:01 Dose: 100 mg Colchicine (Colocrys) 0.6 mg PO DAILY [facility] Last Admin: 09/07/18 11:01 Dose: 0.6 mg Enoxaparin Sodium (Lovenox) 40 mg SC DAILY [facility] Last Admin: 09/07/18 11:02 Dose: 40 mg Furosemide (Lasix) 20 mg PO DAILY [facility] Last Admin: 09/07/18 11:00 Dose: 20 mg Gabapentin (Neurontin) 300 mg PO BID [facility] Last Admin: 09/07/18 11:01 Dose: 300 mg Glipizide (Glucotrol) 10 mg PO DAILY [facility] Last Admin: 09/07/18 11:01 Dose: 10 mg Ceftriaxone Sodium 1 gm/ (Sodium Chloride) 100 mls @ 100 mls/hr IVPB DAILY [facility]; Protocol Last Admin: 09/07/18 11:02 Dose: 100 mls/hr Insulin Aspart (Novolog) 0 unit SC ACHS [facility]; Protocol Last Admin: 09/07/18 08:34 Dose: 4 units Insulin Glargine (Lantus) 25 unit SC HS [facility] Last Admin: 09/06/18 21:36 Dose: 25 unit Metformin HCl (Glucophage) 1,000 mg PO BID [facility] Last Admin: 09/07/18 11:00 Dose: 1,000 mg Methylprednisolone (Solu-Medrol) 40 mg IVP Q12 [facility] Last Admin: 09/07/18 11:01 Dose: 40 mg Oxycodone/Acetaminophen (Percocet 5/325 Mg Tab) 2 tab PO Q6H PRN PRN Reason: Pain, severe (8-10) Stop: 09/07/18 11:21 Last Admin: 09/07/18 04:32 Dose: 2 tab Pantoprazole Sodium (Protonix Ec Tab) 40 mg PO DAILY [facility] Last Admin: 09/07/18 11:00 Dose: 40 mg Rosuvastatin Calcium (Crestor) 5 mg PO HS [facility] Last Admin: 09/06/18 21:36 Dose: 5 mg Tamsulosin HCl (Flomax) 0.4 mg PO DAILY [facility] Last Admin: 09/07/18 11:02 Dose: 0.4 mg Theophylline (Cb-24) 300 mg PO DAILY [facility] Last Admin: 09/07/18 11:01 Dose: 300 mg - Labs Labs: 09/07/18 07:34 09/07/18 07:34 - Additional Findings Additional findings: - Constitutional Appears: No Acute Distress - Head Exam Head Exam: ATRAUMATIC, NORMAL INSPECTION - Eye Exam Eye Exam: EOMI - ENT Exam ENT Exam: Mucous Membranes Moist - Respiratory Exam Respiratory Exam: NORMAL BREATHING PATTERN. absent: Respiratory Distress - Cardiovascular Exam Cardiovascular Exam: REGULAR RHYTHM, +S1, +S2. absent: Murmur - GI/Abdominal Exam GI & Abdominal Exam: Soft, Normal Bowel Sounds. absent: Distended, Firm, Guarding, Rigid, Tenderness - Extremities Exam Extremities Exam: Normal Inspection. absent: Calf Tenderness, Pedal Edema - Neurological Exam Neurological Exam: Alert, Awake, Oriented x3 - Psychiatric Exam Psychiatric exam: Normal Affect - Skin Skin Exam: Normal Color Assessment and Plan - Assessment and Plan (Free Text) Assessment: (1) COPD exacerbation Assessment & Plan: - CXR 09/04/18: Postsurgical changes in the cervical spine. Biapical pleural thickening with upper lobe granulomatous changes. Mild venous congestion. Patchy increased markings at the left lung base. Atherosclerotic calcification within the aorta. Cardiomegaly. Degenerative changes in the spine. - Blood cultures negative at 48 hours Medications: - Theophylline 300 mg PO Daily - Duoneb INH RQ4 - Solumedrol 40mg IVP Q12H Status: Acute (2) Diabetes mellitus Assessment & Plan: - Accuchecks ACHS - Hgb A1c 7.6 (04/20/18) - ISS - high (due to steroids) - Glipizide 10mg PO Daily - Glargine 25 unit SC Daily - Metformin 1000mg PO BID Status: Chronic (3) Hypertension Assessment & Plan: - Lasix increased from 20 mg PO Daily - ECHO (03/17/18): 65% LVEF Status: Acute (4) Hypercholesterolemia Assessment & Plan: - Rosuvastatin 5mg PO HS Status: Acute (5) Gout Assessment & Plan: - Allopurinol 100mg PO Daily, Colchicine 0.6mg PO Daily Status: Acute (6) BPH (benign prostatic hyperplasia) Assessment & Plan: - Flomax .4mg PO Daily Status: Acute (7) Prophylactic measure Assessment & Plan: GI: Protonix 40mg PO daily DVT: Lovenox 40mg SC daily PT Status: Acute All plans and management discussed with Dr. Shelley Patient stable for discharge and will go home on steroid taper.
[2018-09-07 16:12] VITALS: BP 137/71; PULSE 70; TEMP 98; O2SAT 95
--- NOTE | 2018-09-07 22:46 | CARD ---
APPROVED REPORT Date of service: 09/04/2018 EKG Measurement Heart [id number] <Conclusion> Normal sinus rhythm Left axis deviation Minimal voltage criteria for LVH, may be normal variant Abnormal ECG
== END 2018-09-07 16:15 | disposition home or self-care (01) | DRG 191 ==
LOC: C.ER 05:13 → C.9E 06:54 → C.5S 23:13
PROVIDERS: ADMIT Internal Medicine Pulmonary Disease; ATTEND Internal Medicine Pulmonary Disease
DX: J44.1 Chronic obstructive pulmonary disease with (acute) exacerbation (principal); I69.354 Hemiplegia and hemiparesis following cerebral infarction affecting left non-dominant side; E78.00 Pure hypercholesterolemia, unspecified; I25.10 Atherosclerotic heart disease of native coronary artery without angina pectoris; I50.9 Heart failure, unspecified; M06.9 Rheumatoid arthritis, unspecified; I11.0 Hypertensive heart disease with heart failure; Z87.891 Personal history of nicotine dependence; E11.9 Type 2 diabetes mellitus without complications; Z99.81 Dependence on supplemental oxygen; M19.90 Unspecified osteoarthritis, unspecified site; M10.9 Gout, unspecified; N40.1 Benign prostatic hyperplasia with lower urinary tract symptoms